=== PATIENT | male | born 1955 ===

== ENCOUNTER 2017-12-13 20:06 | Inpatient (IN) | payer MEDICARE, MEDICAID ==
[2017-12-13 20:06] VITALS: BMI 22.7
[2017-12-13] MEDS ORDERED: Sodium Chloride 0.9% 1,000 ML IV ONE (20:35)
--- NOTE | 2017-12-13 20:35 | C.PDOC ---
History Of Present Illness 62 year old male presents to the ED c/o abdominal pain associated with mild nausea for the past 5 days. Patient reports he goes to dialysis on Tuesday, , Tuesday he went to dialysis this morning. Patient states he noticed his belly was distended and was not able to eat. Patient denies fever, chills, diarrhea, back pain. Time Seen by Provider: 12/13/17 20:35 Chief Complaint (Nursing): Abdominal Pain History Per: Patient History/Exam Limitations: no limitations Onset/Duration Of Symptoms: Days Current Symptoms Are (Timing): Still Present Severity: Moderate Pain Scale Rating Of: 5 Location Of Pain/Discomfort: Diffuse Radiation Of Pain To:: None Quality Of Discomfort: "Pain" Associated Symptoms: Nausea Exacerbating Factors: None Alleviating Factors: None Last Bowel Movement: Today Recent travel outside of the [place]: No Additional History Per: Patient, Family Past Medical History Reviewed: Historical Data, Nursing Documentation, Vital Signs Vital Signs: Last Vital Signs Temp 98.1 F 12/13/17 20:13 Pulse 78 12/13/17 23:21 Resp 16 12/13/17 23:21 BP 149/76 12/13/17 23:21 Pulse Ox 100 12/13/17 23:21 - Medical History PMH: Anemia, Asthma, CHF, Depression, HTN, Hypercholesterolemia, Hyperlipidemia , Peripheral Edema, Pneumonia, End Stage Renal Disease, Chronic Kidney Disease Denies: Kidney Stones Surgical History: CABG, Cholecystectomy, Coronary Stent Denies: Pacemaker - [facility] CONTRAST ARTERIOGRAM-LEG (07/17/14) HEMODIALYSIS (09/06/14) INFLUENZA VACCINATION (07/17/14) INJECT/INFUSE NEC (04/18/12) MEASUREMENT OF CARDIAC TOTAL ACTIVITY, EXTERNAL APPROACH (10/03/16) NEBULIZER THERAPY (09/02/14) PERFORMANCE OF URINARY FILTRATION, MULTIPLE (10/03/16) PHYSICAL THERAPY NEC (09/06/14) Family History: States: Unknown Family Hx - Social History Hx Tobacco Use: No Hx Alcohol Use: No Hx Substance Use: No - Immunization History Hx Tetanus Toxoid Vaccination: No Hx Influenza Vaccination: Yes Hx Pneumococcal Vaccination: No Review Of Systems Constitutional: Negative for: Fever, Chills Cardiovascular: Positive for: Chest Pain (r rib pain) Respiratory: Negative for: Cough, Shortness of Breath Gastrointestinal: Positive for: Nausea, Abdominal Pain. Negative for: Vomiting , Diarrhea Genitourinary: Negative for: Dysuria Musculoskeletal: Negative for: Back Pain Skin: Negative for: Rash Neurological: Negative for: Headache Psych: Negative for: Anxiety Physical Exam - Physical Exam Appears: Non-toxic, No Acute Distress Skin: Warm, Dry Head: Normacephalic Eye(s): bilateral: Normal Inspection, Other (lens implants) Nose: No Discharge, No Deformity Oral Mucosa: Dry Lips: Normal Appearing Neck: Trachea Midline, Supple Chest: Symmetrical Cardiovascular: Rhythm Regular, No Murmur Respiratory: Decreased Breath Sounds, Rales (bases), No Rhonchi, No Wheezing Gastrointestinal/Abdominal: Soft, Tenderness (mild diffuse), Distention (very), No Guarding, No Rebound, Other (Very tympanic to percussion) Back: CVA Tenderness (r) Extremity: Normal ROM, Other (dialysis graft left arfm, good thrill and bruit) Extremity: Bilateral: Atraumatic Pulses: Left Dorsalis Pedis: Normal, Right Dorsalis Pedis: Normal Neurological/Psych: Oriented x3 Gait: Steady ED Course And Treatment - Laboratory Results Result Diagrams: 12/13/17 20:54 12/13/17 20:54 O2 Sat by Pulse Oximetry: 95 (On RA) Pulse Ox Interpretation: Normal Progress Note: Plan: - EKG. - VBG. - CT abd/pelvis. - Labs. - pepcid 20 mg IVP. - IV fluids. - Toradol 30 mg IVP. - UA Disposition Discussed With : Hannah Ramos Comment: accepted the pt on his service and took over the care at 12AM Doctor Will See Patient In The: Hospital Counseled Patient/Family Regarding: Studies Performed, Diagnosis - Disposition Disposition: HOSPITALIZED Disposition Time: 20:35 Condition: GUARDED Forms: [facility] (Greenlandic) - POA Present On Arrival: Poor Glycemic Control - Clinical Impression Clinical Impression: Abdominal pain, ESRD (end stage renal disease), Ascites, Pleural effusion, Fracture, rib - Scribe Statement The provider has reviewed the documentation as recorded by the Scribe Wilmar Trinidad All medical record entries made by the Scribe were at my direction and personally dictated by me. I have reviewed the chart and agree that the record accurately reflects my personal performance of the history, physical exam, medical decision making, and the department course for this patient. I have also personally directed, reviewed, and agree with the discharge instructions and disposition. Decision To Admit - Pt Status Changed To: Hospital Disposition Of: Inpatient - Admit Certification Admit to Inpatient:: After my assessment, the patient will require hospitalization for at least two midnights. This is because of the severity of symptoms shown, intensity of services needed, and/or the medical risk in this patient being treated as an outpatient. - InPatient: Physician Admission Certification:: After my assessment, the patient will require hospitalization for at least two midnights. This is because of the severity of symptoms shown, intensity of services needed, and/or the medical risk in this patient being treated as an outpatient. - . Bed Request Type: Regular Admitting Physician: Hannah Ramos Patient Diagnosis: Abdominal pain, ESRD (end stage renal disease), Ascites, Pleural effusion, Fracture, rib
[2017-12-13 20:59] LABS: BASO # 0.1 K/uL (0.0-0.2); BASO % 1.9 % (0.0-2.0); EOS # 0.1 K/uL (0.0-0.7); EOS % 1.2 % (0.0-4.0); HEMOGLOBIN 11.7 g/dL (12.0-18.0); LYMPH # 0.6 K/uL (1.0-4.3); LYMPH % 9.6 % (20.0-40.0); MEAN CELL VOLUME 83.6 fL (80.0-94.0); MEAN CORPUSCULAR HEMOGLOBIN 27.9 pg (27.0-31.0); MEAN CORPUSCULAR HGB CONC 33.3 g/dL (33.0-37.0); MEAN PLATELET VOLUME 10.1 fL (7.2-11.7); MONO # 0.6 K/uL (0.0-0.8); MONO % 10.2 % (0.0-10.0); NEUT # 4.7 K/uL (1.8-7.0); NEUT % 77.1 % (50.0-75.0); NRBC % 0.3 % (0.0-2.0); PLATELET COUNT 129 K/uL (130-400); RBC 4.21 Mil/uL (4.40-5.90); RED CELL DISTRIBUTION WIDTH 18.4 % (11.5-14.5); WHITE BLOOD COUNT 6.1 K/uL (4.8-10.8)
[2017-12-13 21:05] LABS: INR 2.4; PROTHROMBIN TIME 27.6 SECONDS (9.7-12.2)
[2017-12-13 21:06] LABS: VENOUS BLOOD GAS BASE EXCESS 8.4 mmol/L (0.0-2.0); VENOUS BLOOD GAS PCO2 55 mmHg (40-60); VENOUS BLOOD GAS PO2 17 mm/Hg (30-55); VENOUS BLOOD PH 7.41 (7.32-7.43)
[2017-12-13 21:10] LABS: ALB/GLOB RATIO 0.9 (1.0-2.1); CALCIUM 8.5 mg/dl (8.6-10.4)
[2017-12-13] MEDS ORDERED: Sodium Chloride 0.9% 1,000 ML ONE (21:19)
[2017-12-13 21:21] LABS: LYMPHOCYTE 15 % (20-40); MONOCYTE 9 % (0-10); NEUTROPHIL 76 % (50-75); TOTAL CELLS COUNTED 100
[2017-12-13 21:22] LABS: ANISOCYTOSIS SLIGHT; HYPOCHROMIC SLIGHT; PLATELET ESTIMATE SLIGHTLY DECREASED (NORMAL); POLYCHROMIC SLIGHT; TARGET CELLS SLIGHT
--- NOTE | 2017-12-13 23:41 | CT ---
EXAM: CT Abdomen and Pelvis Without Intravenous Contrast EXAM DATE/TIME: 12/13/2017 10:10 PM CLINICAL HISTORY: 62 years old, male; Pain and signs and symptoms; Bloating; Abdominal pain; Generalized; Additional info: Abd pain, severe distention TECHNIQUE: Axial computed tomography images of the abdomen and pelvis without intravenous contrast. All CT scans at this facility use one or more dose reduction techniques, viz.: automated exposure control; ma/kV adjustment per patient size (including targeted exams where dose is matched to indication; i.e. head); or iterative reconstruction technique. Coronal and sagittal reformatted images were created and reviewed. COMPARISON: No relevant prior studies available. FINDINGS: LIMITATIONS: Mild streak/motion artifact. LOWER THORAX: Bilateral pleural effusions, moderate to large on the right and moderate on the left. Small amount of consolidation in the right lung base, most likely representing compressive atelectasis related to the right pleural effusion. Heart appears moderately enlarged. Sternotomy wires and multiple mediastinal surgical clips noted, most likely from prior CABG. ABDOMEN: LIVER: Liver has a mildly cirrhotic appearance. It has a lobulated surface contour. No evidence of diffuse liver lesions. GALLBLADDER AND BILE DUCTS: Cholecystectomy clips. PANCREAS: No CT evidence of acute pancreatitis. SPLEEN: No acute abnormality of the spleen identified. ADRENALS: No acute abnormality of the adrenal glands identified. KIDNEYS AND URETERS: Kidneys appear mildly atrophic. Indeterminate 1.2 cm hyperdense lesion in the left kidney, image 69/series 601. This could represent a hyperdense cyst, but a solid lesion is not definitely excluded. Recommend further evaluation with renal protocol CT or MRI, on a nonemergent basis. Bilateral perinephric stranding, a nonspecific finding. No evidence of hydroureteronephrosis. STOMACH AND BOWEL: Colonic diverticulosis, with no evidence of acute diverticulitis. Otherwise, no significant abnormality of the bowel is identified. No evidence of bowel obstruction. APPENDIX: Normal appendix is not seen, however, there are no significant inflammatory changes visualized in the expected location of the appendix to suggest appendicitis. Recommend clinical correlation. PELVIS: BLADDER: Mild thickening of the bladder wall. REPRODUCTIVE: No acute abnormality of the reproductive organs is seen. ABDOMEN and PELVIS: INTRAPERITONEAL SPACE: Moderate to large amount of abdominal and pelvic free fluid. No evidence of free air. BONES/JOINTS: Fracture of the right seventh rib postero-laterally, image 14/series 3, which appears recent/acute in nature. Multiple, bilateral healing and/or healed rib fractures are also seen. Bilateral pars defects at L5. No additional acute fractures. SOFT TISSUES: Diffuse subcutaneous edema/anasarca. VASCULATURE: Extensive atherosclerotic calcification. No evidence of abdominal aortic aneurysm. LYMPH NODES: No evidence of diffuse lymphadenopathy. IMPRESSION: - Moderate to large amount of abdominal and pelvic free fluid. - Moderate to large bilateral pleural effusions, larger on the right. - Diffuse subcutaneous edema/anasarca. - Fracture of the right seventh rib, which appears acute/recent in nature. - Mild bladder wall thickening. This is a nonspecific finding, but can be seen with cystitis. - Incidental indeterminate hyperdense renal lesion. See above.- Purple - See above for remaining findings.
[2017-12-14] MEDS ORDERED: Albuterol-Ipratrop 3 mg / 0.5 (3 ml) UD IH SCH ×2 (06:00→08:00)
[2017-12-14] MEDS: (Novolin R) Insulin Human Regular 100 units/ml vial SC SCH ×4 (08:30→22:08)
--- NOTE | 2017-12-14 10:16 | CP.PCM.CON ---
<Mireya Gonzalez - Last Filed: 12/14/17 10:59> History of Present Illness - History of Present Illness History of Present Illness: Gastroenterology Consult Note Mr. Torres is a 62 year old Male with PMHx as listed below (hard of hearing, has hearing aids) presents with nausea, abdominal pain, and increased abdominal girth x 5 days. Patient reported his abdomen started increasing in size over the span of a week; resulting in nausea and shortness of breath. He continued with his scheduled dialysis days, with no relief of his symptoms. This is his first occurrence of ascites, no prior paracentesis performed. As per patient, he was not aware of any history of liver disease. CT shows cirrhotic appearance with no liver lesions. No prior EGD or Colonoscopy. 12 Point ROS unremarkable, unless noted as above. PMHx: ESRD (TTS), Sarcoidosis, HTN, DM, HLD, CAD with multiple stents, CABG, CHF , PVD, Osteoporosis, Osteoarthritis, Cirrhosis noted on CT Scan PSHx: CAD with PCI, CABG, cholecystectomy, left arm fistula Meds: As per MAR All: NKDA SHx: Denied any tobacco, ETOH or illicit drug use FHx: Unremarkable for any GI issues or malignancies Past Patient History - Infectious Disease Hx of Infectious Diseases: None - Tetanus Immunizations Tetanus Immunization: Unknown - Past Medical History & Family History Past Medical History?: Yes - Past Social History Smoking Status: Unknown If Ever Smoked - CARDIAC Hx Cardiac Disorders: Yes Hx Congestive Heart Failure: Yes Hx Hypercholesterolemia: Yes Hx Hypertension: Yes Hx Pacemaker: No Hx Peripheral Edema: Yes - PULMONARY Hx Respiratory Disorders: Yes Hx Asthma: Yes Hx Pneumonia: Yes - NEUROLOGICAL Hx Neurological Disorder: No Hx Paralysis: No - HEENT Hx HEENT Problems: Yes Hx Cataracts: Yes Hx Deafness: Yes Hx Glaucoma: Yes - RENAL Hx Chronic Kidney Disease: Yes Type of Dialysis Access: left arm av shunt Date of Last Dialysis Treatment: 12/13/17 Hx Kidney Stones: No - ENDOCRINE/METABOLIC Hx Endocrine Disorders: Yes Hx Diabetes Mellitus Type 2: Yes - HEMATOLOGICAL/ONCOLOGICAL Hx Blood Disorders: Yes Hx Anemia: Yes - INTEGUMENTARY Hx Dermatological Problems: No - MUSCULOSKELETAL/RHEUMATOLOGICAL Hx Musculoskeletal Disorders: No Hx Falls: No - GASTROINTESTINAL Hx Gastrointestinal Disorders: Yes Hx Constipation: Yes - GENITOURINARY/GYNECOLOGICAL Hx Genitourinary Disorders: No Hx Reproductive Disorders: No - PSYCHIATRIC Hx Psychophysiologic Disorder: Yes Hx Depression: Yes Hx Substance Use: No - SURGICAL HISTORY Hx Surgeries: Yes Hx Cholecystectomy: Yes Hx Coronary Artery Bypass Graft: Yes Hx Coronary Stent: Yes - ANESTHESIA Hx Anesthesia: Yes Hx Anesthesia Reactions: No Hx Malignant Hyperthermia: No Has any member of the family had a problem w/ anesthesia?: No Meds Allergies/Adverse Reactions: Allergies Allergy/AdvReac Type Severity Reaction Status Date / Time No Known Allergies Allergy Verified 12/14/17 00:48 - Medications Medications: Current Medications Albuterol/Ipratropium (Duoneb 3 Mg/0.5 Mg (3 Ml) Ud) 3 ml IH RQ6 KEVIN Cilostazol (Pletal) 50 mg PO BID KEVIN Furosemide (Lasix) 80 mg PO DAILY KEVIN Gabapentin (Neurontin) 300 mg PO DAILY KEVIN Insulin Human Regular (Novolin R) 0 unit SC ACHS KEVIN PRN Reason: Protocol Last Admin: 12/14/17 08:30 Dose: Not Given Isosorbide Mononitrate (Imdur) 120 mg PO DAILY [facility] Metoprolol Tartrate (Lopressor) 50 mg PO BID KEVIN Mupirocin (Bactroban Ointment) 0 gm TOP BID KEVIN Prednisone (Prednisone Tab) 5 mg PO DAILY KEVIN Rosuvastatin Calcium (Crestor) 5 mg PO HS [facility] Physical Exam - Constitutional Appears: No Acute Distress - Head Exam Head Exam: NORMAL INSPECTION, NORMOCEPHALIC - Eye Exam Eye Exam: EOMI, Normal appearance, PERRL. absent: Scleral icterus Pupil Exam: NORMAL ACCOMODATION - ENT Exam ENT Exam: Mucous Membranes Moist, Normal Exam - Respiratory Exam Respiratory Exam: Decreased Breath Sounds, NORMAL BREATHING PATTERN - Cardiovascular Exam Cardiovascular Exam: REGULAR RHYTHM Additional comments: midline scar 2/2 CABG - GI/Abdominal Exam GI & Abdominal Exam: Distended, Normal Bowel Sounds, Soft, Tenderness. absent: Firm, Organomegaly Additional comments: + fluid wave shift, tympanic to percussion - Extremities Exam Extremities exam: Positive for: normal inspection, pedal pulses present. Negative for: pedal edema, tenderness Additional comments: left AVF - Back Exam Back exam: NORMAL INSPECTION - Neurological Exam Neurological exam: Alert, CN II-XII Intact, Oriented x3 - Psychiatric Exam Psychiatric exam: Normal Affect, Normal Mood - Skin Skin Exam: Dry, Intact, Normal Color, Warm Results - Vital Signs Recent Vital Signs: Last Vital Signs Temp 97.7 F 12/14/17 07:53 Pulse 76 12/14/17 07:53 Resp 20 12/14/17 07:53 BP 150/85 12/14/17 07:53 Pulse Ox 98 12/14/17 07:53 - Labs Result Diagrams: 12/13/17 20:54 12/13/17 20:54 Labs: Laboratory Results - last 24 hr 12/13/17 12/13/17 12/13/17 20:54 20:54 20:54 WBC 6.1 RBC 4.21 L Hgb 11.7 L Hct 35.2 MCV 83.6 MCH 27.9 MCHC 33.3 RDW 18.4 H Plt Count 129 L D MPV 10.1 Neut % (Auto) 77.1 H Lymph % (Auto) 9.6 L [place] % (Auto) 10.2 H Eos % (Auto) 1.2 Baso % (Auto) 1.9 Neut # (Auto) 4.7 Lymph # (Auto) 0.6 L [place] # (Auto) 0.6 Eos # (Auto) 0.1 Baso # (Auto) 0.1 Neutrophils % (Manual) 76 H Lymphocytes % (Manual) 15 L Monocytes % (Manual) 9 Platelet Estimate Slightly decreased L Polychromasia Slight Hypochromasia (manual) Slight Anisocytosis (manual) Slight Target Cells Slight PT 27.6 H INR 2.4 APTT 32 pO2 VBG pH VBG pCO2 VBG HCO3 VBG Total CO2 VBG O2 Sat (Calc) VBG Base Excess VBG Potassium Glucose Lactate Sodium 136 Potassium 5.5 H Chloride 90 L Carbon Dioxide 30 Anion Gap 23 H BUN 22 H Creatinine 3.9 H Est GFR ( Amer) 19 Est GFR (Non-Af Amer) 16 POC Glucose (mg/dL) Random Glucose 170 H Calcium 8.5 L Total Bilirubin 1.0 AST 75 H D ALT 72 D Alkaline Phosphatase 225 H Total Protein 8.4 H Albumin 4.0 Globulin 4.4 H Albumin/Globulin Ratio 0.9 L Lipase 68 Venous Blood Potassium 12/13/17 12/14/17 21:00 07:16 WBC RBC Hgb Hct MCV MCH MCHC RDW Plt Count MPV Neut % (Auto) Lymph % (Auto) [place] % (Auto) Eos % (Auto) Baso % (Auto) Neut # (Auto) Lymph # (Auto) [place] # (Auto) Eos # (Auto) Baso # (Auto) Neutrophils % (Manual) Lymphocytes % (Manual) Monocytes % (Manual) Platelet Estimate Polychromasia Hypochromasia (manual) Anisocytosis (manual) Target Cells PT INR APTT pO2 17 L VBG pH 7.41 VBG pCO2 55 VBG HCO3 29.5 VBG Total CO2 36.6 H VBG O2 Sat (Calc) 29.8 L VBG Base Excess 8.4 H VBG Potassium 4.5 Glucose 157 H Lactate 1.9 Sodium 134.0 Potassium Chloride 95.0 L Carbon Dioxide Anion Gap BUN Creatinine Est GFR ( Amer) Est GFR (Non-Af Amer) POC Glucose (mg/dL) 88 Random Glucose Calcium Total Bilirubin AST ALT Alkaline Phosphatase Total Protein Albumin Globulin Albumin/Globulin Ratio Lipase Venous Blood Potassium 4.5 Assessment & Plan - Assessment and Plan (Free Text) Assessment: Mr. Torres is a 62 year old Male with PMHx of ESRD (TTS), Sarcoidosis, HTN, DM, HLD, CAD with multiple stents, CABG, CHF, PVD, Osteoporosis, Osteoarthritis, Cirrhosis noted on CT Scan (hard of hearing, has hearing aids) presents with nausea, abdominal pain, and increased abdominal girth x 5 days with new onset ascites. Ascites Cirrhosis noted on CT Scan ESRD (TTS) Sarcoidosis Plan: - Low sodium diet as tolerated - IR guided, diagnostic parecentesis, will send fluid for cytology - If peritoneal fluid > 5L removed, replete with IV albumin 6-8g/ extra L removed - Abdominal US performed 12/11/17 at [place] - negative for portal or splenic vein thrombosis - Obtain AFP - Obtain viral hepatitis and autoimmune serologies - Will continue to monitor patient's clinical course DW Mireya Fay DO, PGY-1 <Stepan Linares - Last Filed: 12/14/17 12:05> Meds - Medications Medications: Current Medications Albuterol/Ipratropium (Duoneb 3 Mg/0.5 Mg (3 Ml) Ud) 3 ml IH RQ6 [facility] Cilostazol (Pletal) 50 mg PO BID [facility] Last Admin: 12/14/17 10:36 Dose: 50 mg Furosemide (Lasix) 80 mg PO DAILY [facility] Last Admin: 12/14/17 10:32 Dose: 80 mg Gabapentin (Neurontin) 300 mg PO DAILY [facility] Last Admin: 12/14/17 10:35 Dose: 300 mg Insulin Human Regular (Novolin R) 0 unit SC [facility] PRN Reason: Protocol Last Admin: 12/14/17 08:30 Dose: Not Given Isosorbide Mononitrate (Imdur) 120 mg PO DAILY [facility] Metoprolol Tartrate (Lopressor) 50 mg PO BID [facility] Last Admin: 12/14/17 10:35 Dose: 50 mg Mupirocin (Bactroban Ointment) 0 gm TOP BID [facility] Last Admin: 12/14/17 10:42 Dose: Not Given Prednisone (Prednisone Tab) 5 mg PO DAILY [facility] Last Admin: 12/14/17 10:36 Dose: 5 mg Rosuvastatin Calcium (Crestor) 5 mg PO [facility] Results - Vital Signs Recent Vital Signs: Last Vital Signs Temp 97.7 F 12/14/17 07:53 Pulse 76 12/14/17 07:53 Resp 20 12/14/17 07:53 BP 150/85 12/14/17 10:32 Pulse Ox 98 12/14/17 07:53 - Labs Result Diagrams: 12/13/17 20:54 12/13/17 20:54 Labs: Laboratory Results - last 24 hr 12/13/17 12/13/17 12/13/17 20:54 20:54 20:54 WBC 6.1 RBC 4.21 L Hgb 11.7 L Hct 35.2 MCV 83.6 MCH 27.9 MCHC 33.3 RDW 18.4 H Plt Count 129 L D MPV 10.1 Neut % (Auto) 77.1 H Lymph % (Auto) 9.6 L [place] % (Auto) 10.2 H Eos % (Auto) 1.2 Baso % (Auto) 1.9 Neut # (Auto) 4.7 Lymph # (Auto) 0.6 L [place] # (Auto) 0.6 Eos # (Auto) 0.1 Baso # (Auto) 0.1 Neutrophils % (Manual) 76 H Lymphocytes % (Manual) 15 L Monocytes % (Manual) 9 Platelet Estimate Slightly decreased L Polychromasia Slight Hypochromasia (manual) Slight Anisocytosis (manual) Slight Target Cells Slight PT 27.6 H INR 2.4 APTT 32 pO2 VBG pH VBG pCO2 VBG HCO3 VBG Total CO2 VBG O2 Sat (Calc) VBG Base Excess VBG Potassium Glucose Lactate Sodium 136 Potassium 5.5 H Chloride 90 L Carbon Dioxide 30 Anion Gap 23 H BUN 22 H Creatinine 3.9 H Est GFR ( Amer) 19 Est GFR (Non-Af Amer) 16 POC Glucose (mg/dL) Random Glucose 170 H Calcium 8.5 L Total Bilirubin 1.0 AST 75 H D ALT 72 D Alkaline Phosphatase 225 H Total Protein 8.4 H Albumin 4.0 Globulin 4.4 H Albumin/Globulin Ratio 0.9 L Lipase 68 Alpha Fetoprotein Venous Blood Potassium IgG Hepatitis A IgM Ab Hep Bs Antigen Hep B Core IgM Ab 12/13/17 12/14/17 12/14/17 21:00 07:16 10:50 WBC RBC Hgb Hct MCV MCH MCHC RDW Plt Count MPV Neut % (Auto) Lymph % (Auto) [place] % (Auto) Eos % (Auto) Baso % (Auto) Neut # (Auto) Lymph # (Auto) [place] # (Auto) Eos # (Auto) Baso # (Auto) Neutrophils % (Manual) Lymphocytes % (Manual) Monocytes % (Manual) Platelet Estimate Polychromasia Hypochromasia (manual) Anisocytosis (manual) Target Cells PT INR APTT pO2 17 L VBG pH 7.41 VBG pCO2 55 VBG HCO3 29.5 VBG Total CO2 36.6 H VBG O2 Sat (Calc) 29.8 L VBG Base Excess 8.4 H VBG Potassium 4.5 Glucose 157 H Lactate 1.9 Sodium 134.0 Potassium Chloride 95.0 L Carbon Dioxide Anion Gap BUN Creatinine Est GFR ( Amer) Est GFR (Non-Af Amer) POC Glucose (mg/dL) 88 Random Glucose Calcium Total Bilirubin AST ALT Alkaline Phosphatase Total Protein Albumin Globulin Albumin/Globulin Ratio Lipase 87 Alpha Fetoprotein Venous Blood Potassium 4.5 IgG Hepatitis A IgM Ab Hep Bs Antigen Hep B Core IgM Ab 12/14/17 12/14/17 12/14/17 10:50 10:50 10:50 WBC RBC Hgb Hct MCV MCH MCHC RDW Plt Count MPV Neut % (Auto) Lymph % (Auto) [place] % (Auto) Eos % (Auto) Baso % (Auto) Neut # (Auto) Lymph # (Auto) [place] # (Auto) Eos # (Auto) Baso # (Auto) Neutrophils % (Manual) Lymphocytes % (Manual) Monocytes % (Manual) Platelet Estimate Polychromasia Hypochromasia (manual) Anisocytosis (manual) Target Cells PT INR APTT pO2 VBG pH VBG pCO2 VBG HCO3 VBG Total CO2 VBG O2 Sat (Calc) VBG Base Excess VBG Potassium Glucose Lactate Sodium Potassium Chloride Carbon Dioxide Anion Gap BUN Creatinine Est GFR ( Amer) Est GFR (Non-Af Amer) POC Glucose (mg/dL) Random Glucose Calcium Total Bilirubin AST ALT Alkaline Phosphatase Total Protein Albumin Globulin Albumin/Globulin Ratio Lipase Alpha Fetoprotein 5.4 Venous Blood Potassium IgG 2151.0 H Hepatitis A IgM Ab Negative Hep Bs Antigen Negative Hep B Core IgM Ab Negative 12/14/17 11:12 WBC RBC Hgb Hct MCV MCH MCHC RDW Plt Count MPV Neut % (Auto) Lymph % (Auto) [place] % (Auto) Eos % (Auto) Baso % (Auto) Neut # (Auto) Lymph # (Auto) [place] # (Auto) Eos # (Auto) Baso # (Auto) Neutrophils % (Manual) Lymphocytes % (Manual) Monocytes % (Manual) Platelet Estimate Polychromasia Hypochromasia (manual) Anisocytosis (manual) Target Cells PT INR APTT pO2 VBG pH VBG pCO2 VBG HCO3 VBG Total CO2 VBG O2 Sat (Calc) VBG Base Excess VBG Potassium Glucose Lactate Sodium Potassium Chloride Carbon Dioxide Anion Gap BUN Creatinine Est GFR ( Amer) Est GFR (Non-Af Amer) POC Glucose (mg/dL) 162 H Random Glucose Calcium Total Bilirubin AST ALT Alkaline Phosphatase Total Protein Albumin Globulin Albumin/Globulin Ratio Lipase Alpha Fetoprotein Venous Blood Potassium IgG Hepatitis A IgM Ab Hep Bs Antigen Hep B Core IgM Ab Attending/Attestation - Attestation I have personally seen and examined this patient.: Yes I have fully participated in the care of the patient.: Yes I have reviewed all pertinent clinical information: Yes Notes (Text): 12/14/17 12:02 62 year old male with h/o ESRD on HD, CAD s/p CABG, admitted with abdominal pain and distention found to have ascites and evidence of cirrhosis on imaging, as well as asterixis on exam. Recommend large volume paracentesis to eval further. Send fluid for cell count, diff, cytology, albumin, protein, and culture. Recommend eval for chronic liver disease including autoimmune disease. Prior hepatitis serogogies negative. No h/o etoh abuse. Mild asterixis on exam may indicated mild hepatic encephalopathy. Start lactulose.
[2017-12-14] MEDS: Cilostazol 50 mg Tab UD PO SCH ×2 (10:36→18:00)
[2017-12-14 11:48] LABS: HEPATITIS B SURFACE AG Negative (NEGATIVE)
[2017-12-14 11:54] LABS: HEPATITIS A IGM NEGATIVE (NEGATIVE); HEPATITIS B CORE AB NEGATIVE (NEGATIVE)
[2017-12-14 12:06] LABS: HEPATITIS C ANTIBODY NEGATIVE (NEGATIVE)
--- NOTE | 2017-12-14 13:34 | CP.PCM.CON ---
History of Present Illness - History of Present Illness History of Present Illness: Mr. Torres is a 62 year old Male with PMHx as listed below (hard of hearing, has hearing aids) presents with nausea, abdominal pain, and increased abdominal girth x 5 days. Patient reported his abdomen started increasing in size over the span of a week; resulting in nausea and shortness of breath. He continued with his scheduled dialysis days, with no relief of his symptoms. This is his first occurrence of ascites, no prior paracentesis performed. As per patient, he was not aware of any history of liver disease. CT shows cirrhotic appearance with no liver lesions. No prior EGD or Colonoscopy. 12 Point ROS unremarkable, unless noted as above. PMHx: ESRD (TTS), Sarcoidosis, HTN, DM, HLD, CAD with multiple stents, CABG, CHF , PVD, Osteoporosis, Osteoarthritis, Cirrhosis noted on CT Scan PSHx: CAD with PCI, CABG, cholecystectomy, left arm fistula Meds: As per DEC All: NKDA SHx: Denied any tobacco, ETOH or illicit drug use FHx: Unremarkable for any GI issues or malignancies ; no known CKD Last dialysis 12/13- has been tolerating dialysis well Review of Systems - Constitutional Constitutional: Fatigue, Weakness - EENT Eyes: absent: As Per HPI, Blind Spots, Blurred Vision, Change in Vision, Decreased Night Vision, Diplopia, Discharge, Dry Eye, Exophthalmos, Floaters, Irritation, Itchy Eyes, Loss of Peripheral Vision, Pain, Photophobia, Requires Corrective Lenses, Sees Flashes, Spots in Vision, Tunnel Vision, Other Visual Disturbances, Loss of Vision, Other Ears: absent: As Per HPI, Decreased Hearing, Ear Discharge, Ear Pain, Tinnitus, Abnormal Hearing, Disequilibrium, Dizziness, Other Nose/Mouth/Throat: absent: As Per HPI, Epistaxis, Nasal Congestion, Nasal Discharge, Nasal Obstruction, Nasal Trauma, Nose Pain, Post Nasal Drip, Sinus Pain, Sinus Pressure, Bleeding Gums, Change in Voice, Dental Pain, Dry Mouth, Dysphagia, Halitosis, Hoarsness, Lip Swelling, Mouth Lesions, Mouth Pain, Odynophagia, Sore Throat, Throat Swelling, Tongue Swelling, Facial Pain, Neck Pain, Neck Mass, Other - Cardiovascular Cardiovascular: Dyspnea on Exertion, Edema - Respiratory Respiratory: Cough, Dyspnea on Exertion - Gastrointestinal Gastrointestinal: As Per HPI - Genitourinary Genitourinary: As Per HPI - Musculoskeletal Musculoskeletal: Muscle Cramps, Myalgias - Neurological Neurological: absent: As Per HPI, Abnormal Gait, Abnormal Hearing, Abnormal Movements, Abnormal Speech, Behavioral Changes, Burning Sensations, Confusion, Convulsions, Disequilibrium, Dizziness, Numbness, Focal Weakness, Frequent Falls , Headaches, Lack of Coordination, Loss of Vision, Memory Loss, Paresthesias, Radicular Pain, Restless Legs, Sensory Deficit, Syncope, Tingling, Tremor, Vertigo, Weakness, Other Visual Disturbances, Other Past Patient History - Infectious Disease Hx of Infectious Diseases: None - Tetanus Immunizations Tetanus Immunization: Unknown - Past Medical History & Family History Past Medical History?: Yes Past Family History: Reviewed and not pertinent - Past Social History Smoking Status: Unknown If Ever Smoked Chewing Tobacco Use: No Cigar Use: No Alcohol: None Drugs: Denies Home Situation {Lives}: With Family - CARDIAC Hx Cardiac Disorders: Yes Hx Congestive Heart Failure: Yes Hx Hypercholesterolemia: Yes Hx Hypertension: Yes Hx Pacemaker: No Hx Peripheral Edema: Yes - PULMONARY Hx Respiratory Disorders: Yes Hx Asthma: Yes Hx Pneumonia: Yes - NEUROLOGICAL Hx Neurological Disorder: No Hx Paralysis: No - HEENT Hx HEENT Problems: Yes Hx Cataracts: Yes Hx Deafness: Yes Hx Glaucoma: Yes - RENAL Hx Chronic Kidney Disease: Yes Type of Dialysis Access: left arm av shunt Date of Last Dialysis Treatment: 12/13/17 Hx Kidney Stones: No - ENDOCRINE/METABOLIC Hx Endocrine Disorders: Yes Hx Diabetes Mellitus Type 2: Yes - HEMATOLOGICAL/ONCOLOGICAL Hx Blood Disorders: Yes Hx Anemia: Yes - INTEGUMENTARY Hx Dermatological Problems: No - MUSCULOSKELETAL/RHEUMATOLOGICAL Hx Musculoskeletal Disorders: No Hx Falls: No - GASTROINTESTINAL Hx Gastrointestinal Disorders: Yes Hx Constipation: Yes - GENITOURINARY/GYNECOLOGICAL Hx Genitourinary Disorders: No Hx Reproductive Disorders: No - PSYCHIATRIC Hx Psychophysiologic Disorder: Yes Hx Depression: Yes Hx Substance Use: No - SURGICAL HISTORY Hx Surgeries: Yes Hx Cholecystectomy: Yes Hx Coronary Artery Bypass Graft: Yes Hx Coronary Stent: Yes - ANESTHESIA Hx Anesthesia: Yes Hx Anesthesia Reactions: No Hx Malignant Hyperthermia: No Has any member of the family had a problem w/ anesthesia?: No Meds Allergies/Adverse Reactions: Allergies Allergy/AdvReac Type Severity Reaction Status Date / Time No Known Allergies Allergy Verified 12/14/17 00:48 - Medications Medications: Current Medications Albuterol/Ipratropium (Duoneb 3 Mg/0.5 Mg (3 Ml) Ud) 3 ml IH RQ6 [facility] Cilostazol (Pletal) 50 mg PO BID [facility] Last Admin: 12/14/17 10:36 Dose: 50 mg Furosemide (Lasix) 80 mg PO DAILY [facility] Last Admin: 12/14/17 10:32 Dose: 80 mg Gabapentin (Neurontin) 300 mg PO DAILY [facility] Last Admin: 12/14/17 10:35 Dose: 300 mg Insulin Human Regular (Novolin R) 0 unit SC [facility] PRN Reason: Protocol Last Admin: 12/14/17 12:19 Dose: 1 unit Isosorbide Mononitrate (Imdur) 120 mg PO DAILY [facility] Lactulose (Enulose) 20 gm PO DAILY [facility] Last Admin: 12/14/17 12:18 Dose: 20 gm Metoprolol Tartrate (Lopressor) 50 mg PO BID [facility] Last Admin: 12/14/17 10:35 Dose: 50 mg Mupirocin (Bactroban Ointment) 0 gm TOP BID [facility] Last Admin: 12/14/17 10:42 Dose: Not Given Prednisone (Prednisone Tab) 5 mg PO DAILY [facility] Last Admin: 12/14/17 10:36 Dose: 5 mg Rosuvastatin Calcium (Crestor) 5 mg PO [facility] Physical Exam - Constitutional Appears: No Acute Distress, Chronically Ill - Head Exam Head Exam: ATRAUMATIC, NORMAL INSPECTION - Eye Exam Eye Exam: EOMI, Normal appearance - Neck Exam Neck exam: Positive for: Normal Inspection. Negative for: Tenderness - Respiratory Exam Respiratory Exam: Clear to Auscultation Bilateral, NORMAL BREATHING PATTERN - Cardiovascular Exam Cardiovascular Exam: REGULAR RHYTHM, +S1 - GI/Abdominal Exam GI & Abdominal Exam: Distended, Soft - Extremities Exam Extremities exam: Positive for: pedal edema. Negative for: tenderness - Neurological Exam Neurological exam: CN II-XII Intact, Oriented x3 - Skin Skin Exam: Dry, Warm Results - Vital Signs Recent Vital Signs: Last Vital Signs Temp 97.7 F 12/14/17 07:53 Pulse 76 12/14/17 07:53 Resp 20 12/14/17 07:53 BP 150/85 12/14/17 10:32 Pulse Ox 98 12/14/17 07:53 - Labs Result Diagrams: 12/13/17 20:54 12/13/17 20:54 Labs: Laboratory Results - last 24 hr 12/13/17 12/13/17 12/13/17 20:54 20:54 20:54 WBC 6.1 RBC 4.21 L Hgb 11.7 L Hct 35.2 MCV 83.6 MCH 27.9 MCHC 33.3 RDW 18.4 H Plt Count 129 L D MPV 10.1 Neut % (Auto) 77.1 H Lymph % (Auto) 9.6 L [place] % (Auto) 10.2 H Eos % (Auto) 1.2 Baso % (Auto) 1.9 Neut # (Auto) 4.7 Lymph # (Auto) 0.6 L [place] # (Auto) 0.6 Eos # (Auto) 0.1 Baso # (Auto) 0.1 Neutrophils % (Manual) 76 H Lymphocytes % (Manual) 15 L Monocytes % (Manual) 9 Platelet Estimate Slightly decreased L Polychromasia Slight Hypochromasia (manual) Slight Anisocytosis (manual) Slight Target Cells Slight PT 27.6 H INR 2.4 APTT 32 pO2 VBG pH VBG pCO2 VBG HCO3 VBG Total CO2 VBG O2 Sat (Calc) VBG Base Excess VBG Potassium Glucose Lactate Sodium 136 Potassium 5.5 H Chloride 90 L Carbon Dioxide 30 Anion Gap 23 H BUN 22 H Creatinine 3.9 H Est GFR ( Amer) 19 Est GFR (Non-Af Amer) 16 POC Glucose (mg/dL) Random Glucose 170 H Calcium 8.5 L Total Bilirubin 1.0 AST 75 H D ALT 72 D Alkaline Phosphatase 225 H Total Protein 8.4 H Albumin 4.0 Globulin 4.4 H Albumin/Globulin Ratio 0.9 L Lipase 68 Alpha Fetoprotein Venous Blood Potassium IgG Hepatitis A IgM Ab Hep Bs Antigen Hep B Core IgM Ab Hepatitis C Antibody 12/13/17 12/14/17 12/14/17 21:00 07:16 10:50 WBC RBC Hgb Hct MCV MCH MCHC RDW Plt Count MPV Neut % (Auto) Lymph % (Auto) [place] % (Auto) Eos % (Auto) Baso % (Auto) Neut # (Auto) Lymph # (Auto) [place] # (Auto) Eos # (Auto) Baso # (Auto) Neutrophils % (Manual) Lymphocytes % (Manual) Monocytes % (Manual) Platelet Estimate Polychromasia Hypochromasia (manual) Anisocytosis (manual) Target Cells PT INR APTT pO2 17 L VBG pH 7.41 VBG pCO2 55 VBG HCO3 29.5 VBG Total CO2 36.6 H VBG O2 Sat (Calc) 29.8 L VBG Base Excess 8.4 H VBG Potassium 4.5 Glucose 157 H Lactate 1.9 Sodium 134.0 Potassium Chloride 95.0 L Carbon Dioxide Anion Gap BUN Creatinine Est GFR ( Amer) Est GFR (Non-Af Amer) POC Glucose (mg/dL) 88 Random Glucose Calcium Total Bilirubin AST ALT Alkaline Phosphatase Total Protein Albumin Globulin Albumin/Globulin Ratio Lipase 87 Alpha Fetoprotein Venous Blood Potassium 4.5 IgG Hepatitis A IgM Ab Hep Bs Antigen Hep B Core IgM Ab Hepatitis C Antibody 12/14/17 12/14/17 12/14/17 10:50 10:50 10:50 WBC RBC Hgb Hct MCV MCH MCHC RDW Plt Count MPV Neut % (Auto) Lymph % (Auto) [place] % (Auto) Eos % (Auto) Baso % (Auto) Neut # (Auto) Lymph # (Auto) [place] # (Auto) Eos # (Auto) Baso # (Auto) Neutrophils % (Manual) Lymphocytes % (Manual) Monocytes % (Manual) Platelet Estimate Polychromasia Hypochromasia (manual) Anisocytosis (manual) Target Cells PT INR APTT pO2 VBG pH VBG pCO2 VBG HCO3 VBG Total CO2 VBG O2 Sat (Calc) VBG Base Excess VBG Potassium Glucose Lactate Sodium Potassium Chloride Carbon Dioxide Anion Gap BUN Creatinine Est GFR ( Amer) Est GFR (Non-Af Amer) POC Glucose (mg/dL) Random Glucose Calcium Total Bilirubin AST ALT Alkaline Phosphatase Total Protein Albumin Globulin Albumin/Globulin Ratio Lipase Alpha Fetoprotein 5.4 Venous Blood Potassium IgG 2151.0 H Hepatitis A IgM Ab Negative Hep Bs Antigen Negative Hep B Core IgM Ab Negative Hepatitis C Antibody Negative 12/14/17 11:12 WBC RBC Hgb Hct MCV MCH MCHC RDW Plt Count MPV Neut % (Auto) Lymph % (Auto) [place] % (Auto) Eos % (Auto) Baso % (Auto) Neut # (Auto) Lymph # (Auto) [place] # (Auto) Eos # (Auto) Baso # (Auto) Neutrophils % (Manual) Lymphocytes % (Manual) Monocytes % (Manual) Platelet Estimate Polychromasia Hypochromasia (manual) Anisocytosis (manual) Target Cells PT INR APTT pO2 VBG pH VBG pCO2 VBG HCO3 VBG Total CO2 VBG O2 Sat (Calc) VBG Base Excess VBG Potassium Glucose Lactate Sodium Potassium Chloride Carbon Dioxide Anion Gap BUN Creatinine Est GFR ( Amer) Est GFR (Non-Af Amer) POC Glucose (mg/dL) 162 H Random Glucose Calcium Total Bilirubin AST ALT Alkaline Phosphatase Total Protein Albumin Globulin Albumin/Globulin Ratio Lipase Alpha Fetoprotein Venous Blood Potassium IgG Hepatitis A IgM Ab Hep Bs Antigen Hep B Core IgM Ab Hepatitis C Antibody Assessment & Plan (1) Type 2 diabetes mellitus with diabetic nephropathy Status: Acute (2) Hypertension associated with chronic kidney disease due to type 2 diabetes mellitus Status: Acute (3) Cirrhosis of liver not due to alcohol Status: Acute (4) CAD (coronary artery disease) Status: Chronic Priority: Medium - Assessment and Plan (Free Text) Plan: GI workup dialysis TTS
[2017-12-14] MEDS: Albuterol-Ipratrop 3 mg / 0.5 (3 ml) UD IH SCH (13:55)
[2017-12-14 14:43] LABS: BASO % 0.5 % (0.0-2.0); EOS # 0.1 K/uL (0.0-0.7); EOS % 1.4 % (0.0-4.0); HEMOGLOBIN 11.3 g/dL (12.0-18.0); LYMPH # 0.3 K/uL (1.0-4.3); MEAN CELL VOLUME 82.9 fL (80.0-94.0); MEAN CORPUSCULAR HGB CONC 33.7 g/dL (33.0-37.0); MEAN PLATELET VOLUME 10.3 fL (7.2-11.7); MONO # 0.4 K/uL (0.0-0.8); MONO % 7.7 % (0.0-10.0); NEUT # 4.6 K/uL (1.8-7.0); NEUT % 84.4 % (50.0-75.0); NRBC % 0.5 % (0.0-2.0); PLATELET COUNT 111 K/uL (130-400); RBC 4.03 Mil/uL (4.40-5.90); RED CELL DISTRIBUTION WIDTH 17.6 % (11.5-14.5); WHITE BLOOD COUNT 5.4 K/uL (4.8-10.8)
[2017-12-14 14:47] LABS: SQUAMOUS EPITHIAL 1 /hpf (0-5); URINE AMORPHOUS SEDIMENT RARE /ul (<OCC); URINE BILIRUBIN NEGATIVE (NEGATIVE); URINE BLOOD 1+ (NEGATIVE); URINE CLARITY Hazy (Clear); URINE COLOR Amber (YELLOW); URINE GLUCOSE (UA) NORMAL (Normal); URINE HYALINE CAST 0-2 /lpf (0-2); URINE LEUKOCYTE ESTERASE 2+ Leu/uL (Negative); URINE PROTEIN 3+ mg/dL (NEGATIVE)
[2017-12-14 14:56] LABS: URINE BACTERIA FEW (<OCC)
[2017-12-14 15:05] LABS: ALBUMIN 3.7 g/dL (3.5-5.0); CALCIUM 8.1 mg/dl (8.6-10.4)
[2017-12-14 15:24] LABS: LYMPHOCYTE 11 % (20-40); MONOCYTE 6 % (0-10); NEUTROPHIL 83 % (50-75); PLATELET ESTIMATE SLIGHTLY DECREASED (NORMAL); TOTAL CELLS COUNTED 100
[2017-12-14 15:26] LABS: ANISOCYTOSIS SLIGHT; HYPOCHROMIC SLIGHT; POIKILOCYTOSIS SLIGHT; TARGET CELLS SLIGHT
--- NOTE | 2017-12-14 21:46 | CP.PCM.HP ---
History of Present Illness - History of Present Illness History of Present Illness: CC: Abdominal pain HPI: 62-year-old male with a history of sarcoidosis, hypertension, diabetes, hyperlipidemia, CAD, with multiple stents, CABG, congestive heart failure, liver cirrhosis, osteoporosis and osteoarthritis. Patient is complaining of increasing abdominal distention, and also upper abdominal pain, and right flank pain. Patient started having the symptoms a few days ago, gradually got worse. Yesterday he was not able to breath. He was also complaining of some nausea, poor intake noted. Poor appetite present. He did not have any vomiting, no diarrhea noted. Patient is also having difficulty in going to the bathroom. Patient was getting the hemodialysis. Patient is also using home oxygen In the past patient was evaluated for transplant but because of the multiple medical problems it was not successful. Past medical history: As noted Surgical history: CABG, cholecystectomy, left arm AV fistula Medications noted from the chart Allergies no known drug allergies Personal history, nonsmoker nonalcoholic Family history noncontributory Review of system noted from the chart On examination: Patient is not in any distress now. Chest bilateral good air entry, decreased air entry in the lower lung rubin noted Regular heart sounds noted Abdomen distention, fluid thrill present Pedal edema 1+ on the right leg Patient also has loss of fingers on the right hand Labs reviewed Nonspecific. CT of the abdomen and pelvis showing evidence of pleural effusion, moderate to large, bilateral. Also moderate to large ascites noted. Assessment/plan: 62-year-old male with multiple medical history including sarcoidosis, hypertension, diabetes, hyperlipidemia, CAD, CABG, congestive heart failure, peripheral vascular disease, liver cirrhosis Admitted with a worsening abdominal distention, possible worsening decompensated liver disease, and ascites Patient may need frequent hemodialysis. Possible paracentesis. 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 Continue the current treatment. Bronchodilators and oxygen We'll follow the patient. Present on Admission - Present on Admission Any Indicators Present on Admission: No History of DVT/PE: No History of Uncontrolled Diabetes: No Urinary Catheter: No Decubitus Ulcer Present: No Past Patient History - Infectious Disease Hx of Infectious Diseases: None - Tetanus Immunizations Tetanus Immunization: Unknown - Past Medical History & Family History Past Medical History?: Yes Past Family History: Reviewed and not pertinent - Past Social History Smoking Status: Unknown If Ever Smoked Chewing Tobacco Use: No Cigar Use: No Alcohol: None Drugs: Denies Home Situation {Lives}: With Family - CARDIAC Hx Cardiac Disorders: Yes Hx Congestive Heart Failure: Yes Hx Hypercholesterolemia: Yes Hx Hypertension: Yes Hx Pacemaker: No Hx Peripheral Edema: Yes - PULMONARY Hx Respiratory Disorders: Yes Hx Asthma: Yes Hx Pneumonia: Yes - NEUROLOGICAL Hx Neurological Disorder: No Hx Paralysis: No - HEENT Hx HEENT Problems: Yes Hx Cataracts: Yes Hx Deafness: Yes Hx Glaucoma: Yes - RENAL Hx Chronic Kidney Disease: Yes Type of Dialysis Access: left arm av shunt Date of Last Dialysis Treatment: 12/13/17 Hx Kidney Stones: No - ENDOCRINE/METABOLIC Hx Endocrine Disorders: Yes Hx Diabetes Mellitus Type 2: Yes - HEMATOLOGICAL/ONCOLOGICAL Hx Blood Disorders: Yes Hx Anemia: Yes - INTEGUMENTARY Hx Dermatological Problems: No - MUSCULOSKELETAL/RHEUMATOLOGICAL Hx Musculoskeletal Disorders: No Hx Falls: No - GASTROINTESTINAL Hx Gastrointestinal Disorders: Yes Hx Constipation: Yes - GENITOURINARY/GYNECOLOGICAL Hx Genitourinary Disorders: No Hx Reproductive Disorders: No - PSYCHIATRIC Hx Psychophysiologic Disorder: Yes Hx Depression: Yes Hx Substance Use: No - SURGICAL HISTORY Hx Surgeries: Yes Hx Cholecystectomy: Yes Hx Coronary Artery Bypass Graft: Yes Hx Coronary Stent: Yes - ANESTHESIA Hx Anesthesia: Yes Hx Anesthesia Reactions: No Hx Malignant Hyperthermia: No Has any member of the family had a problem w/ anesthesia?: No Meds Allergies/Adverse Reactions: Allergies Allergy/AdvReac Type Severity Reaction Status Date / Time No Known Allergies Allergy Verified 12/14/17 00:48 Results - Vital Signs Recent Vital Signs: Last Vital Signs Temp 98.0 F 12/14/17 15:00 Pulse 78 12/14/17 15:00 Resp 20 12/14/17 15:00 BP 132/70 12/14/17 15:00 Pulse Ox 95 12/14/17 15:00 - Labs Result Diagrams: 12/14/17 14:38 12/14/17 14:38 Labs: Laboratory Results - last 24 hr 12/14/17 12/14/17 12/14/17 07:16 10:50 10:50 WBC RBC Hgb Hct MCV MCH MCHC RDW Plt Count MPV Neut % (Auto) Lymph % (Auto) [place] % (Auto) Eos % (Auto) Baso % (Auto) Neut # (Auto) Lymph # (Auto) [place] # (Auto) Eos # (Auto) Baso # (Auto) Neutrophils % (Manual) Lymphocytes % (Manual) Monocytes % (Manual) Platelet Estimate Hypochromasia (manual) Poikilocytosis (manual Anisocytosis (manual) Target Cells Sodium Potassium Chloride Carbon Dioxide Anion Gap BUN Creatinine Est GFR ( Amer) Est GFR (Non-Af Amer) POC Glucose (mg/dL) 88 Random Glucose Calcium Total Bilirubin AST ALT Alkaline Phosphatase Total Protein Albumin Globulin Albumin/Globulin Ratio Lipase 87 Alpha Fetoprotein 5.4 Urine Color Urine Clarity Urine pH Ur Specific [place] Urine Protein Urine Glucose (UA) Urine Ketones Urine Blood Urine Nitrate Urine Bilirubin Urine Urobilinogen Ur Leukocyte Esterase Urine WBC (Auto) Urine RBC (Auto) Ur Squamous Epith Cells Amorphous Sediment Urine Bacteria Hyaline Casts IgG Hepatitis A IgM Ab Hep Bs Antigen Hep B Core IgM Ab Hepatitis C Antibody 12/14/17 12/14/17 12/14/17 10:50 10:50 11:12 WBC RBC Hgb Hct MCV MCH MCHC RDW Plt Count MPV Neut % (Auto) Lymph % (Auto) [place] % (Auto) Eos % (Auto) Baso % (Auto) Neut # (Auto) Lymph # (Auto) [place] # (Auto) Eos # (Auto) Baso # (Auto) Neutrophils % (Manual) Lymphocytes % (Manual) Monocytes % (Manual) Platelet Estimate Hypochromasia (manual) Poikilocytosis (manual Anisocytosis (manual) Target Cells Sodium Potassium Chloride Carbon Dioxide Anion Gap BUN Creatinine Est GFR ( Amer) Est GFR (Non-Af Amer) POC Glucose (mg/dL) 162 H Random Glucose Calcium Total Bilirubin AST ALT Alkaline Phosphatase Total Protein Albumin Globulin Albumin/Globulin Ratio Lipase Alpha Fetoprotein Urine Color Urine Clarity Urine pH Ur Specific [place] Urine Protein Urine Glucose (UA) Urine Ketones Urine Blood Urine Nitrate Urine Bilirubin Urine Urobilinogen Ur Leukocyte Esterase Urine WBC (Auto) Urine RBC (Auto) Ur Squamous Epith Cells Amorphous Sediment Urine Bacteria Hyaline Casts IgG 2151.0 H Hepatitis A IgM Ab Negative Hep Bs Antigen Negative Hep B Core IgM Ab Negative Hepatitis C Antibody Negative 12/14/17 12/14/17 12/14/17 14:38 14:38 14:38 WBC 5.4 RBC 4.03 L Hgb 11.3 L Hct 33.4 L MCV 82.9 MCH 28.0 MCHC 33.7 RDW 17.6 H Plt Count 111 L MPV 10.3 Neut % (Auto) 84.4 H Lymph % (Auto) 6.0 L [place] % (Auto) 7.7 Eos % (Auto) 1.4 Baso % (Auto) 0.5 Neut # (Auto) 4.6 Lymph # (Auto) 0.3 L [place] # (Auto) 0.4 Eos # (Auto) 0.1 Baso # (Auto) 0.0 Neutrophils % (Manual) 83 H Lymphocytes % (Manual) 11 L Monocytes % (Manual) 6 Platelet Estimate Slightly decreased L Hypochromasia (manual) Slight Poikilocytosis (manual Slight Anisocytosis (manual) Slight Target Cells Slight Sodium 135 Potassium 5.1 Chloride 90 L Carbon Dioxide 30 Anion Gap 19 BUN 28 H Creatinine 4.8 H Est GFR ( Amer) 15 Est GFR (Non-Af Amer) 12 POC Glucose (mg/dL) Random Glucose 165 H Calcium 8.1 L Total Bilirubin 0.8 AST 64 H ALT 64 Alkaline Phosphatase 216 H Total Protein 7.5 Albumin 3.7 Globulin 3.7 Albumin/Globulin Ratio 1.0 Lipase Alpha Fetoprotein Urine Color [place] Urine Clarity Hazy Urine pH 5.0 Ur Specific [place] 1.023 Urine Protein 3+ H Urine Glucose (UA) Normal Urine Ketones Negative Urine Blood 1+ H Urine Nitrate Negative Urine Bilirubin Negative Urine Urobilinogen 2.0 Ur Leukocyte Esterase 2+ H Urine WBC (Auto) 69 H Urine RBC (Auto) 21 H Ur Squamous Epith Cells 1 Amorphous Sediment Rare H Urine Bacteria Few H Hyaline Casts 0-2 IgG Hepatitis A IgM Ab Hep Bs Antigen Hep B Core IgM Ab Hepatitis C Antibody 12/14/17 16:02 WBC RBC Hgb Hct MCV MCH MCHC RDW Plt Count MPV Neut % (Auto) Lymph % (Auto) [place] % (Auto) Eos % (Auto) Baso % (Auto) Neut # (Auto) Lymph # (Auto) [place] # (Auto) Eos # (Auto) Baso # (Auto) Neutrophils % (Manual) Lymphocytes % (Manual) Monocytes % (Manual) Platelet Estimate Hypochromasia (manual) Poikilocytosis (manual Anisocytosis (manual) Target Cells Sodium Potassium Chloride Carbon Dioxide Anion Gap BUN Creatinine Est GFR ( Amer) Est GFR (Non-Af Amer) POC Glucose (mg/dL) 159 H Random Glucose Calcium Total Bilirubin AST ALT Alkaline Phosphatase Total Protein Albumin Globulin Albumin/Globulin Ratio Lipase Alpha Fetoprotein Urine Color Urine Clarity Urine pH Ur Specific [place] Urine Protein Urine Glucose (UA) Urine Ketones Urine Blood Urine Nitrate Urine Bilirubin Urine Urobilinogen Ur Leukocyte Esterase Urine WBC (Auto) Urine RBC (Auto) Ur Squamous Epith Cells Amorphous Sediment Urine Bacteria Hyaline Casts IgG Hepatitis A IgM Ab Hep Bs Antigen Hep B Core IgM Ab Hepatitis C Antibody
--- NOTE | 2017-12-15 01:29 | US ---
EXAM: US Abdomen Complete CLINICAL HISTORY: 62 years old, male; Signs and symptoms; Other: Ascites; Patient HX: Lt kid lp cyst seen on sono today; Additional info: Ascitis TECHNIQUE: Real-time ultrasound of the abdomen (complete) with image documentation. COMPARISON: CT - ABD PELVIS W/O PO OR IV CONT 2017-12-13 22:47 FINDINGS: Liver: Lobulated contour. Heterogeneous echotexture. No discrete mass. No intrahepatic ductal dilatation. Pulsatile, bidirectional flow within portal vein. Gallbladder: Cholecystectomy. Common bile duct: Up to 0.88 cm in diameter. No stones. Pancreas: Unremarkable as visualized. Kidneys: Mild atrophy. Increased in echogenicity. 0.9 cm lower pole cyst left kidney. Nonvisualization of hyperdense lesion noted on CT. No hydronephrosis. Spleen: No splenomegaly. Aorta: Unremarkable. No aneurysm. Inferior vena cava: Unremarkable. Free fluid: Moderate to large free fluid within abdomen. Pleural space: Bilateral pleural effusions. IMPRESSION: 1. Cirrhosis. 2. Moderate to large ascites. 3. Bilateral pleural effusions. 4. Mildly prominent common bile duct. 5. Echogenic kidneys suggesting medical renal disease. 6. Nonvisualization of hyperdense lesion noted on CT. Suggest nonemergent MRI. 7. Incidental/non-acute findings are described above.
[2017-12-15] MEDS: Albuterol-Ipratrop 3 mg / 0.5 (3 ml) UD IH SCH ×4 (01:53→20:39)
[2017-12-15 07:30] LABS: BASO % 0.6 % (0.0-2.0); EOS # 0.1 K/uL (0.0-0.7); EOS % 2.7 % (0.0-4.0); HEMOGLOBIN 11.4 g/dL (12.0-18.0); LYMPH # 0.5 K/uL (1.0-4.3); LYMPH % 10.5 % (20.0-40.0); MEAN CELL VOLUME 83.5 fL (80.0-94.0); MEAN CORPUSCULAR HEMOGLOBIN 28.2 pg (27.0-31.0); MEAN CORPUSCULAR HGB CONC 33.8 g/dL (33.0-37.0); MEAN PLATELET VOLUME 10.7 fL (7.2-11.7); MONO # 0.6 K/uL (0.0-0.8); MONO % 11.5 % (0.0-10.0); NEUT # 3.8 K/uL (1.8-7.0); NEUT % 74.7 % (50.0-75.0); NRBC % 0.7 % (0.0-2.0); RBC 4.05 Mil/uL (4.40-5.90); RED CELL DISTRIBUTION WIDTH 17.6 % (11.5-14.5); WHITE BLOOD COUNT 5.1 K/uL (4.8-10.8)
[2017-12-15 07:41] LABS: ALBUMIN 3.8 g/dL (3.5-5.0); CALCIUM 8.3 mg/dl (8.6-10.4)
[2017-12-15] MEDS: (Novolin R) Insulin Human Regular 100 units/ml vial SC SCH ×4 (08:00→22:14)
[2017-12-15 08:12] LABS: INR 1.9
--- NOTE | 2017-12-15 08:48 | CP.PCM.PN ---
<Sia Munson - Last Filed: 12/15/17 09:09> Subjective - Date & Time of Evaluation Date of Evaluation: 12/15/17 Time of Evaluation: 08:00 - Subjective Subjective: PGY4 GI Follow-up Pt seen and examined bedside Denies any abd pain +voiding +BM Denies any SOB ROS: 10 point ROS conducted, neg other than above Objective - Vital Signs/Intake and Output Vital Signs (last 24 hours): Temp Pulse Resp BP Pulse Ox 98.1 F 72 20 105/56 L 98 12/15/17 00:00 12/15/17 00:00 12/15/17 00:00 12/15/17 00:00 12/15/17 00:00 - Medications Medications: Current Medications Albuterol/Ipratropium (Duoneb 3 Mg/0.5 Mg (3 Ml) Ud) 3 ml IH RQ6 [facility] Last Admin: 12/15/17 08:27 Dose: 3 ml Cilostazol (Pletal) 50 mg PO BID [facility] Last Admin: 12/14/17 18:00 Dose: 50 mg Docusate Sodium (Colace) 100 mg PO BID [facility] Furosemide (Lasix) 80 mg PO DAILY [facility] Last Admin: 12/14/17 10:32 Dose: 80 mg Gabapentin (Neurontin) 300 mg PO DAILY [facility] Last Admin: 12/14/17 10:35 Dose: 300 mg Insulin Human Regular (Novolin R) 0 unit SC [facility] PRN Reason: Protocol Last Admin: 12/15/17 08:00 Dose: Not Given Isosorbide Mononitrate (Imdur) 120 mg PO DAILY [facility] Lactulose (Enulose) 20 gm PO DAILY [facility] Last Admin: 12/14/17 12:18 Dose: 20 gm Metoprolol Tartrate (Lopressor) 50 mg PO BID [facility] Last Admin: 12/14/17 18:04 Dose: 50 mg Mupirocin (Bactroban Ointment) 0 gm TOP BID [facility] Last Admin: 12/14/17 18:00 Dose: 1 applic Prednisone (Prednisone Tab) 5 mg PO DAILY [facility] Last Admin: 12/14/17 10:36 Dose: 5 mg Rosuvastatin Calcium (Crestor) 5 mg PO HS [facility] Last Admin: 12/14/17 21:25 Dose: 5 mg - Labs Labs: 12/15/17 07:11 12/15/17 07:11 PT 22.0 SECONDS (9.7-12.2) H D 12/15/17 07:56 INR 1.9 D 12/15/17 07:56 APTT 32 SECONDS (21-34) 12/13/17 20:54 - Constitutional Appears: Well, No Acute Distress - Head Exam Head Exam: ATRAUMATIC, NORMOCEPHALIC - Eye Exam Eye Exam: Normal appearance - ENT Exam ENT Exam: Mucous Membranes Moist, Normal Exam - Respiratory Exam Respiratory Exam: Decreased Breath Sounds, NORMAL BREATHING PATTERN. absent: Rales, Rhonchi, Wheezes, Respiratory Distress - Cardiovascular Exam Cardiovascular Exam: REGULAR RHYTHM, +S1, +S2 - GI/Abdominal Exam GI & Abdominal Exam: Distended. absent: Guarding, Rigid, Tenderness, Normal Bowel Sounds, Organomegaly - Extremities Exam Extremities Exam: Pedal Edema. absent: Joint Swelling - Neurological Exam Neurological Exam: Alert, Awake, Oriented x3 - Psychiatric Exam Psychiatric exam: Normal Affect, Normal Mood - Skin Skin Exam: Dry, Intact, Normal Color, Warm Assessment and Plan - Assessment and Plan (Free Text) Assessment: Mr. Torres is a 62 year old Male with PMHx of ESRD (TTS), Sarcoidosis, HTN, DM, HLD, CAD with multiple stents, CABG, CHF, PVD, Osteoporosis, Osteoarthritis, Cirrhosis noted on CT Scan (hard of hearing, has hearing aids) presents with nausea, abdominal pain, and increased abdominal girth x 5 days with new onset ascites. New onset Ascites; etiology unknown; DDx: cardiac, renal, cirrhosis Cirrhosis Coagulopathy ESRD (TTS) Sarcoidosis Plan: - Low sodium diet as tolerated - IR guided, diagnostic parecentesis, will send fluid for cytology, cell count, albumin - will calculate SAAG - If peritoneal fluid > 5L removed, replete with IV albumin 6-8g/ extra L removed - Abdominal US performed 12/11/17 at [place] - negative for portal or splenic vein thrombosis - Obtain viral hepatitis and autoimmune serologies - Will continue to monitor patient's clinical course - If going to IR today, will give FFp to decrease INR DW Dr. Cullen, <César Cullen Y - Last Filed: 12/15/17 12:36> Objective - Vital Signs/Intake and Output Vital Signs (last 24 hours): Temp Pulse Resp BP Pulse Ox 97.4 F L 80 16 173/81 H 100 12/15/17 09:10 12/15/17 09:10 12/15/17 09:10 12/15/17 12:22 12/15/17 09:10 - Medications Medications: Current Medications Albuterol/Ipratropium (Duoneb 3 Mg/0.5 Mg (3 Ml) Ud) 3 ml IH RQ6 [facility] Last Admin: 12/15/17 08:27 Dose: 3 ml Cilostazol (Pletal) 50 mg PO BID [facility] Last Admin: 12/15/17 09:04 Dose: Not Given Docusate Sodium (Colace) 100 mg PO BID [facility] Last Admin: 12/15/17 09:04 Dose: Not Given Furosemide (Lasix) 80 mg PO DAILY [facility] Last Admin: 12/14/17 10:32 Dose: 80 mg Gabapentin (Neurontin) 300 mg PO DAILY [facility] Last Admin: 12/14/17 10:35 Dose: 300 mg Insulin Human Regular (Novolin R) 0 unit SC [facility] PRN Reason: Protocol Last Admin: 12/15/17 12:32 Dose: Not Given Isosorbide Mononitrate (Imdur) 120 mg PO DAILY [facility] Lactulose (Enulose) 20 gm PO DAILY [facility] Last Admin: 12/14/17 12:18 Dose: 20 gm Metoprolol Tartrate (Lopressor) 50 mg PO BID [facility] Last Admin: 12/15/17 09:04 Dose: Not Given Mupirocin (Bactroban Ointment) 0 gm TOP BID [facility] Last Admin: 12/15/17 09:04 Dose: Not Given Prednisone (Prednisone Tab) 5 mg PO DAILY [facility] Last Admin: 12/14/17 10:36 Dose: 5 mg Rosuvastatin Calcium (Crestor) 5 mg PO HS [facility] Last Admin: 12/14/17 21:25 Dose: 5 mg - Labs Labs: 12/15/17 07:11 12/15/17 07:11 PT 22.7 SECONDS (9.7-12.2) H 12/15/17 11:43 INR 1.9 12/15/17 11:43 APTT 32 SECONDS (21-34) 12/13/17 20:54 Attending/Attestation - Attestation I have personally seen and examined this patient.: Yes I have fully participated in the care of the patient.: Yes I have reviewed all pertinent clinical information, including history, physical exam and plan: Yes Notes (Text): 12/15/17 12:32 I have seen and examined patient with GI fellow. No acute events overnight, he is seen sitting at bedside, appears quite comfortable. Breathing has improved, he denies abdominal pain, nausea, vomiting, fever/chills. Tolerating PO diet without difficulty. Review of vitals from today are normal. ESRD on HD HTN / DM Sarcoidosis CAD/CABG Increased abdominal girth, ascites Cirrhosis - unclear etiology - Low sodium diet as tolerated - Plan for diagnostic paracentesis today for further evaluation of new onset ascites - Awaiting viral hepatitis and autoimmune serologies - Continue with lactulose for HE prevention - Follow up pulmonary recommendations - Will continue to monitor patient clinical course
[2017-12-15] MEDS: Cilostazol 50 mg Tab UD PO SCH ×2 (09:04→17:29)
--- NOTE | 2017-12-15 09:42 | CP.PCM.PN ---
Subjective - Date & Time of Evaluation Date of Evaluation: 12/15/17 Time of Evaluation: 09:39 - Subjective Subjective: Seen at dialysis now feels same BP controlled labs acceptable will UF 3000ml now for paracentesis later no n, v, f, c SOB Objective - Vital Signs/Intake and Output Vital Signs (last 24 hours): Temp Pulse Resp BP Pulse Ox 98.5 F 70 20 110/56 L 97 12/15/17 08:59 12/15/17 08:59 12/15/17 08:59 12/15/17 08:59 12/15/17 08:59 - Medications Medications: Current Medications Albuterol/Ipratropium (Duoneb 3 Mg/0.5 Mg (3 Ml) Ud) 3 ml IH RQ6 [facility] Last Admin: 12/15/17 08:27 Dose: 3 ml Cilostazol (Pletal) 50 mg PO BID [facility] Last Admin: 12/15/17 09:04 Dose: Not Given Docusate Sodium (Colace) 100 mg PO BID [facility] Last Admin: 12/15/17 09:04 Dose: Not Given Furosemide (Lasix) 80 mg PO DAILY [facility] Last Admin: 12/14/17 10:32 Dose: 80 mg Gabapentin (Neurontin) 300 mg PO DAILY [facility] Last Admin: 12/14/17 10:35 Dose: 300 mg Insulin Human Regular (Novolin R) 0 unit SC [facility] PRN Reason: Protocol Last Admin: 12/15/17 08:00 Dose: Not Given Isosorbide Mononitrate (Imdur) 120 mg PO DAILY [facility] Lactulose (Enulose) 20 gm PO DAILY [facility] Last Admin: 12/14/17 12:18 Dose: 20 gm Metoprolol Tartrate (Lopressor) 50 mg PO BID [facility] Last Admin: 12/15/17 09:04 Dose: Not Given Mupirocin (Bactroban Ointment) 0 gm TOP BID [facility] Last Admin: 12/15/17 09:04 Dose: Not Given Prednisone (Prednisone Tab) 5 mg PO DAILY [facility] Last Admin: 12/14/17 10:36 Dose: 5 mg Rosuvastatin Calcium (Crestor) 5 mg PO HS [facility] Last Admin: 12/14/17 21:25 Dose: 5 mg - Labs Labs: 12/15/17 07:11 12/15/17 07:11 PT 22.0 SECONDS (9.7-12.2) H D 12/15/17 07:56 INR 1.9 D 12/15/17 07:56 APTT 32 SECONDS (21-34) 12/13/17 20:54 - Constitutional Appears: No Acute Distress, Chronically Ill - Head Exam Head Exam: ATRAUMATIC, NORMAL INSPECTION - Eye Exam Eye Exam: EOMI, Normal appearance - Neck Exam Neck Exam: Normal Inspection. absent: Tenderness - Respiratory Exam Respiratory Exam: Clear to Ausculation Bilateral, NORMAL BREATHING PATTERN - Cardiovascular Exam Cardiovascular Exam: REGULAR RHYTHM, +S1 - GI/Abdominal Exam GI & Abdominal Exam: Soft. absent: Tenderness - Extremities Exam Extremities Exam: Normal Inspection. absent: Tenderness - Neurological Exam Neurological Exam: Awake, CN II-XII Intact - Skin Skin Exam: Dry, Warm Assessment and Plan (1) Type 2 diabetes mellitus with diabetic nephropathy Status: Acute (2) Hypertension associated with chronic kidney disease due to type 2 diabetes mellitus Status: Acute (3) Cirrhosis of liver not due to alcohol Status: Acute (4) CAD (coronary artery disease) Status: Chronic - Assessment and Plan (Free Text) Plan: dialysis with aggressive fluid removal paracentesis pending liver workup
[2017-12-15 11:41] LABS: INR 1.9; PROTHROMBIN TIME 22.7 SECONDS (9.7-12.2)
--- NOTE | 2017-12-15 15:14 | CP.PCM.PN ---
Subjective - Date & Time of Evaluation Date of Evaluation: 12/15/17 Time of Evaluation: 15:14 - Subjective Subjective: Patient is feeling better. Currently receiving hemodialysis. This morning he a better. Denies any abdominal pain. Right flank pain still noted, but otherwise patient is feeling okay. On examination: HEENT PERRLA, neck supple No thyromegaly was noted and no cervical adenopathy noted Decreased lung sounds in the lung bases CVS regular heart sound, no murmur Abdomen distention Pedal edema [employer] alert awake oriented x3 no functional neurological deficit. Assessment and recommendation: 62-year-old male with multiple medical history, sarcoidosis, hypertension, congestive heart failure, diabetes, chronic lung disease on home O2 admitted with abdominal pain, distention and possible fluid overload state. Currently receiving dialysis. Will do a paracentesis tomorrow. Patient possibly has a liver cirrhosis also, and a fluid overload. Diuretics is not working, patient not making much urine. Objective - Vital Signs/Intake and Output Vital Signs (last 24 hours): Temp Pulse Resp BP Pulse Ox 98.2 F 81 20 158/76 H 95 12/15/17 13:09 12/15/17 13:09 12/15/17 13:09 12/15/17 13:09 12/15/17 13:09 - Medications Medications: Current Medications Albuterol/Ipratropium (Duoneb 3 Mg/0.5 Mg (3 Ml) Ud) 3 ml IH RQ6 [facility] Last Admin: 12/15/17 14:09 Dose: 3 ml Cilostazol (Pletal) 50 mg PO BID [facility] Last Admin: 12/15/17 09:04 Dose: Not Given Docusate Sodium (Colace) 100 mg PO BID [facility] Last Admin: 12/15/17 09:04 Dose: Not Given Furosemide (Lasix) 80 mg PO DAILY [facility] Last Admin: 12/15/17 13:09 Dose: 80 mg Gabapentin (Neurontin) 300 mg PO DAILY [facility] Last Admin: 12/15/17 13:09 Dose: 300 mg Insulin Human Regular (Novolin R) 0 unit SC [facility] PRN Reason: Protocol Last Admin: 12/15/17 12:32 Dose: Not Given Isosorbide Mononitrate (Imdur) 120 mg PO DAILY [facility] Last Admin: 12/15/17 13:09 Dose: 120 mg Lactulose (Enulose) 20 gm PO DAILY [facility] Last Admin: 12/15/17 13:10 Dose: 20 gm Metoprolol Tartrate (Lopressor) 50 mg PO BID [facility] Last Admin: 12/15/17 09:04 Dose: Not Given Mupirocin (Bactroban Ointment) 0 gm TOP BID [facility] Last Admin: 12/15/17 09:04 Dose: Not Given Prednisone (Prednisone Tab) 5 mg PO DAILY [facility] Last Admin: 12/15/17 13:09 Dose: 5 mg Rosuvastatin Calcium (Crestor) 5 mg PO HS [facility] Last Admin: 12/14/17 21:25 Dose: 5 mg - Labs Labs: 12/15/17 07:11 12/15/17 07:11 PT 22.7 SECONDS (9.7-12.2) H 12/15/17 11:43 INR 1.9 12/15/17 11:43 APTT 32 SECONDS (21-34) 12/13/17 20:54
[2017-12-16] MEDS: Albuterol-Ipratrop 3 mg / 0.5 (3 ml) UD IH SCH ×4 (01:42→19:45)
[2017-12-16 06:17] LABS: BASO % 1.2 % (0.0-2.0); EOS # 0.1 K/uL (0.0-0.7); EOS % 2.7 % (0.0-4.0); HEMOGLOBIN 10.3 g/dL (12.0-18.0); LYMPH # 0.4 K/uL (1.0-4.3); LYMPH % 10.3 % (20.0-40.0); MEAN CORPUSCULAR HEMOGLOBIN 28.2 pg (27.0-31.0); MEAN CORPUSCULAR HGB CONC 33.9 g/dL (33.0-37.0); MEAN PLATELET VOLUME 9.6 fL (7.2-11.7); MONO # 0.5 K/uL (0.0-0.8); MONO % 11.5 % (0.0-10.0); NEUT # 3.1 K/uL (1.8-7.0); NEUT % 74.3 % (50.0-75.0); NRBC % 0.3 % (0.0-2.0); RBC 3.67 Mil/uL (4.40-5.90); RED CELL DISTRIBUTION WIDTH 18.3 % (11.5-14.5); WHITE BLOOD COUNT 4.2 K/uL (4.8-10.8)
[2017-12-16 06:34] LABS: INR 1.6; PROTHROMBIN TIME 18.7 SECONDS (9.7-12.2)
[2017-12-16 06:36] LABS: ALBUMIN 3.4 g/dL (3.5-5.0); CALCIUM 7.8 mg/dl (8.6-10.4)
[2017-12-16] MEDS: (Novolin R) Insulin Human Regular 100 units/ml vial SC SCH ×4 (08:28→21:35)
--- NOTE | 2017-12-16 08:33 | CP.PCM.PN ---
<Mireya Gonzalez - Last Filed: 12/16/17 11:35> Subjective - Date & Time of Evaluation Date of Evaluation: 12/16/17 Time of Evaluation: 07:00 - Subjective Subjective: Gastroenterology Follow Up Note Patient was seen and examined at beside. Patient reports he is tolerating his diet, normal bowel movements. Denied any shortness of breath or abdominal pain. 12 point ROS unremarkable. Objective - Vital Signs/Intake and Output Vital Signs (last 24 hours): Temp Pulse Resp BP Pulse Ox 97.5 F L 72 20 137/70 95 12/16/17 08:00 12/16/17 08:00 12/16/17 08:00 12/16/17 08:00 12/16/17 08:00 Intake and Output: 12/16/17 12/16/17 06:59 18:59 Intake Total 0 Balance 0 - Medications Medications: Current Medications Albuterol/Ipratropium (Duoneb 3 Mg/0.5 Mg (3 Ml) Ud) 3 ml IH RQ6 [facility] Last Admin: 12/16/17 08:21 Dose: 3 ml Cilostazol (Pletal) 50 mg PO BID [facility] Last Admin: 12/15/17 17:29 Dose: 50 mg Docusate Sodium (Colace) 100 mg PO BID [facility] Last Admin: 12/15/17 17:30 Dose: 100 mg Furosemide (Lasix) 80 mg PO DAILY [facility] Last Admin: 12/15/17 13:09 Dose: 80 mg Gabapentin (Neurontin) 300 mg PO DAILY [facility] Last Admin: 12/15/17 13:09 Dose: 300 mg Insulin Human Regular (Novolin R) 0 unit SC [facility] PRN Reason: Protocol Last Admin: 12/16/17 08:28 Dose: Not Given Isosorbide Mononitrate (Imdur) 120 mg PO DAILY [facility] Last Admin: 12/15/17 13:09 Dose: 120 mg Lactulose (Enulose) 20 gm PO DAILY [facility] Last Admin: 12/15/17 13:10 Dose: 20 gm Metoprolol Tartrate (Lopressor) 50 mg PO BID [facility] Last Admin: 12/15/17 17:29 Dose: 50 mg Mupirocin (Bactroban Ointment) 0 gm TOP BID [facility] Last Admin: 12/15/17 17:32 Dose: 1 applic Prednisone (Prednisone Tab) 5 mg PO DAILY [facility] Last Admin: 12/15/17 13:09 Dose: 5 mg Rosuvastatin Calcium (Crestor) 5 mg PO HS [facility] Last Admin: 12/15/17 21:37 Dose: 5 mg - Labs Labs: 12/16/17 06:13 12/16/17 06:13 PT 18.7 SECONDS (9.7-12.2) H 12/16/17 06:13 INR 1.6 12/16/17 06:13 APTT 31 SECONDS (21-34) 12/16/17 06:13 - Constitutional Appears: No Acute Distress - Head Exam Head Exam: NORMAL INSPECTION, NORMOCEPHALIC - Eye Exam Eye Exam: EOMI, Normal appearance, PERRL Pupil Exam: NORMAL ACCOMODATION - ENT Exam ENT Exam: Mucous Membranes Moist - Neck Exam Neck Exam: Normal Inspection - Respiratory Exam Respiratory Exam: Clear to Ausculation Bilateral, NORMAL BREATHING PATTERN - Cardiovascular Exam Cardiovascular Exam: REGULAR RHYTHM - GI/Abdominal Exam GI & Abdominal Exam: Distended (Ascites ), Soft, Normal Bowel Sounds. absent: Tenderness, Organomegaly - Rectal Exam Rectal Exam: Deferred - Extremities Exam Extremities Exam: Normal Inspection. absent: Pedal Edema, Tenderness - Neurological Exam Neurological Exam: Alert, Awake, Oriented x3 - Psychiatric Exam Psychiatric exam: Normal Affect, Normal Mood - Skin Skin Exam: Dry, Intact, Normal Color, Warm Assessment and Plan - Assessment and Plan (Free Text) Assessment: Mr. Torres is a 62 year old Male with PMHx of ESRD (TTS), Sarcoidosis, HTN, DM, HLD, CAD with multiple stents, CABG, CHF, PVD, Osteoporosis, Osteoarthritis, Cirrhosis noted on CT Scan (hard of hearing, has hearing aids) presents with nausea, abdominal pain, and increased abdominal girth x 5 days with new onset ascites. Increased abdominal girth, ascites Cirrhosis - unclear etiology ESRD on HD (TTS) HTN / DM Sarcoidosis CAD/CABG Plan: - Low sodium diet as tolerated - S/P paracentesis today for further evaluation of new onset ascites, 1.2L removed; will calculate SAAG, follow up cytology, albumin and total protein - Abdominal US performed 12/11/17 at [place] - negative for portal or splenic vein thrombosis - Viral hepatitis and autoimmune serologies negative - Continue with lactulose for HE prevention - Will continue to monitor patient clinical course DW Dr. Hernández, Mireya Minorara DO, PGY-1 <Bailey Hernández - Last Filed: 12/16/17 21:55> Objective - Vital Signs/Intake and Output Vital Signs (last 24 hours): Temp Pulse Resp BP Pulse Ox 97.6 F 78 20 127/56 L 99 12/16/17 15:06 12/16/17 15:06 12/16/17 15:06 12/16/17 15:06 12/16/17 15:06 Intake and Output: 12/16/17 12/17/17 18:59 06:59 Intake Total 400 Balance 400 - Medications Medications: Current Medications Albuterol/Ipratropium (Duoneb 3 Mg/0.5 Mg (3 Ml) Ud) 3 ml IH RQ6 [facility] Last Admin: 12/16/17 19:45 Dose: 3 ml Cilostazol (Pletal) 50 mg PO BID [facility] Last Admin: 12/16/17 18:00 Dose: 50 mg Docusate Sodium (Colace) 100 mg PO BID [facility] Last Admin: 12/16/17 17:51 Dose: 100 mg Furosemide (Lasix) 80 mg PO DAILY [facility] Last Admin: 12/16/17 11:15 Dose: 80 mg Gabapentin (Neurontin) 300 mg PO DAILY [facility] Last Admin: 12/16/17 11:14 Dose: 300 mg Insulin Human Regular (Novolin R) 0 unit SC [facility] PRN Reason: Protocol Last Admin: 12/16/17 21:35 Dose: Not Given Isosorbide Mononitrate (Imdur) 120 mg PO DAILY [facility] Last Admin: 12/16/17 11:14 Dose: 120 mg Lactulose (Enulose) 20 gm PO DAILY [facility] Last Admin: 12/16/17 11:23 Dose: 20 gm Metoprolol Tartrate (Lopressor) 50 mg PO BID [facility] Last Admin: 12/16/17 17:51 Dose: 50 mg Mupirocin (Bactroban Ointment) 0 gm TOP BID [facility] Last Admin: 12/16/17 21:00 Dose: 1 applic Prednisone (Prednisone Tab) 5 mg PO DAILY [facility] Last Admin: 12/16/17 11:16 Dose: 5 mg Rosuvastatin Calcium (Crestor) 5 mg PO HS [facility] Last Admin: 12/16/17 21:36 Dose: 5 mg - Labs Labs: 12/16/17 06:13 12/16/17 06:13 PT 18.7 SECONDS (9.7-12.2) H 12/16/17 06:13 INR 1.6 12/16/17 06:13 APTT 31 SECONDS (21-34) 12/16/17 06:13 Attending/Attestation - Attestation I have personally seen and examined this patient.: Yes I have fully participated in the care of the patient.: Yes I have reviewed all pertinent clinical information, including history, physical exam and plan: Yes Notes (Text): 12/16/17 21:53 I have seen and examined patient with GI fellow. 62 yr old M with ESRD on HD, HTN, DM, Sarcoidosis, CAD/CABG, with new onset ascites. No acute events overnight, he is seen sitting at bedside, appears quite comfortable. Breathing has improved, he denies abdominal pain, nausea, vomiting, fever/chills. Tolerating PO diet without difficulty. Review of vitals from today are normal. Diagnostic paracentesis was done- results pending. Low sodium diet. Continue with lactulose for HE prevention. Follow up pulmonary recommendations. Will continue to monitor patient clinical course
--- NOTE | 2017-12-16 09:53 | PCM.SURG1 ---
Surgeon's Initial Post Op Note - Surgeon's Notes Surgeon: Hema Stevens MD Facetor: NONE Type of Anesthesia: Local Pre-Operative Diagnosis: Ascites, cirrhosis, ESRD Operative Findings: US showed a small amount of ascites Post-Operative Diagnosis: Ascites, ESRD Operation Performed: US guided paracentesis Specimen/Specimens Removed: 1200 cc of slight serosanguinous fluid Estimated Blood Loss: EBL {In ML}: 0 Blood Products Given: N/A Drains Used: No Drains Post-Op Condition: Fair Date of Surgery/Procedure: 12/16/17 Time of Surgery/Procedure: 09:50
[2017-12-16 10:04] LABS: CERULOPLASMIN 34 mg/dL (18-36)
[2017-12-16] MEDS: Cilostazol 50 mg Tab UD PO SCH ×2 (11:16→18:00)
--- NOTE | 2017-12-16 11:25 | US ---
Date of Procedure: 12/16/2017 PROCEDURE: Ultrasound-guided paracentesis, CPT 12853 Medications: 7 cc 1% Lidocaine HISTORY: Ascites, abdominal pain TECHNIQUE: Following informed consent , the patient was placed supine on the stretcher and the site was marked. A limited abdominal ultrasound was performed that showed small amount of intra-abdominal fluid. Procedural time out was called and the Pt's abdomen was marked and prepped and draped in the usual sterile fashion. Ultrasound-guided large volume paracentesis performed. A total of 1200 cc serosanguinous fluid was removed without complication. Fluid specimen was sent for culture, sensitivity, cytology and chemistries. IMPRESSION: Ultrasound-guided paracentesis.
[2017-12-16 12:16] LABS: BODY FLUID TYPE PERITONEAL/ASCITES
--- NOTE | 2017-12-16 12:56 | CP.PCM.PN ---
Subjective - Date & Time of Evaluation Date of Evaluation: 12/16/17 Time of Evaluation: 12:54 - Subjective Subjective: s/p paracentesis- 1200ml ascites removed s/p dialysis 12/15- UF 3000ml feels better not dyspneic, no CPs, n, v, f, chills Objective - Vital Signs/Intake and Output Vital Signs (last 24 hours): Temp Pulse Resp BP Pulse Ox 97.5 F L 72 20 137/70 95 12/16/17 08:00 12/16/17 08:00 12/16/17 08:00 12/16/17 11:15 12/16/17 08:00 Intake and Output: 12/16/17 12/16/17 06:59 18:59 Intake Total 0 Balance 0 - Medications Medications: Current Medications Albuterol/Ipratropium (Duoneb 3 Mg/0.5 Mg (3 Ml) Ud) 3 ml IH RQ6 [facility] Last Admin: 12/16/17 08:21 Dose: 3 ml Cilostazol (Pletal) 50 mg PO BID [facility] Last Admin: 12/16/17 11:16 Dose: 50 mg Docusate Sodium (Colace) 100 mg PO BID [facility] Last Admin: 12/16/17 11:14 Dose: 100 mg Furosemide (Lasix) 80 mg PO DAILY [facility] Last Admin: 12/16/17 11:15 Dose: 80 mg Gabapentin (Neurontin) 300 mg PO DAILY [facility] Last Admin: 12/16/17 11:14 Dose: 300 mg Insulin Human Regular (Novolin R) 0 unit SC [facility] PRN Reason: Protocol Last Admin: 12/16/17 11:41 Dose: 1 unit Isosorbide Mononitrate (Imdur) 120 mg PO DAILY [facility] Last Admin: 12/16/17 11:14 Dose: 120 mg Lactulose (Enulose) 20 gm PO DAILY [facility] Last Admin: 12/16/17 11:23 Dose: 20 gm Metoprolol Tartrate (Lopressor) 50 mg PO BID [facility] Last Admin: 12/16/17 11:20 Dose: 50 mg Mupirocin (Bactroban Ointment) 0 gm TOP BID [facility] Last Admin: 12/16/17 11:17 Dose: 1 applic Prednisone (Prednisone Tab) 5 mg PO DAILY [facility] Last Admin: 12/16/17 11:16 Dose: 5 mg Rosuvastatin Calcium (Crestor) 5 mg PO HS [facility] Last Admin: 12/15/17 21:37 Dose: 5 mg - Labs Labs: 12/16/17 06:13 12/16/17 06:13 PT 18.7 SECONDS (9.7-12.2) H 12/16/17 06:13 INR 1.6 12/16/17 06:13 APTT 31 SECONDS (21-34) 12/16/17 06:13 - Constitutional Appears: No Acute Distress, Chronically Ill - Head Exam Head Exam: ATRAUMATIC, NORMAL INSPECTION - Eye Exam Eye Exam: EOMI, Normal appearance - Neck Exam Neck Exam: Normal Inspection. absent: Tenderness - Respiratory Exam Respiratory Exam: Clear to Ausculation Bilateral, NORMAL BREATHING PATTERN - Cardiovascular Exam Cardiovascular Exam: REGULAR RHYTHM, +S1 - GI/Abdominal Exam GI & Abdominal Exam: Distended, Soft - Extremities Exam Extremities Exam: Normal Inspection. absent: Tenderness - Neurological Exam Neurological Exam: Alert, CN II-XII Intact - Skin Skin Exam: Dry, Warm Assessment and Plan (1) Type 2 diabetes mellitus with diabetic nephropathy Status: Acute (2) Hypertension associated with chronic kidney disease due to type 2 diabetes mellitus Status: Acute (3) Cirrhosis of liver not due to alcohol Status: Acute (4) CAD (coronary artery disease) Status: Chronic - Assessment and Plan (Free Text) Plan: repeat dialysis TTS UF about 3 kg as tolerated await ascites evaluation
[2017-12-16 13:01] LABS: BF GROSS APPEARANCE BLOODY (CLEAR); BODY FLUID TOTAL COUNT 100 (0-0)
[2017-12-16 13:02] LABS: BODY FLUID MONO/MACROPHAGE 2 % (0-0)
--- NOTE | 2017-12-16 14:48 | CP.PCM.PN ---
Subjective - Date & Time of Evaluation Date of Evaluation: 12/16/17 Time of Evaluation: 14:49 - Subjective Subjective: Patient had hemodialysis yesterday. Today he underwent paracentesis, 1.2 liters of fluid removed. The abdomen is less swelling. Denies any abdominal pain. No nausea, vomiting eating better. Had a BM today. 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 Assessment/plan: 62 male with history of chronic liver disease, hypertension, CAD, status post open-heart surgery, peripheral vascular disease, stent in the past, end-stage renal disease on dialysis, admitted with the worsening abdominal distention, possible exacerbation of ascites, and associate with the shortness of breath. Status post a present as is. He will get his hemodialysis tomorrow, after that her discharge the patient Objective - Vital Signs/Intake and Output Vital Signs (last 24 hours): Temp Pulse Resp BP Pulse Ox 97.5 F L 72 20 137/70 95 12/16/17 08:00 12/16/17 08:00 12/16/17 08:00 12/16/17 11:15 12/16/17 08:00 Intake and Output: 12/16/17 12/16/17 06:59 18:59 Intake Total 0 Balance 0 - Medications Medications: Current Medications Albuterol/Ipratropium (Duoneb 3 Mg/0.5 Mg (3 Ml) Ud) 3 ml IH RQ6 [facility] Last Admin: 12/16/17 14:07 Dose: 3 ml Cilostazol (Pletal) 50 mg PO BID [facility] Last Admin: 12/16/17 11:16 Dose: 50 mg Docusate Sodium (Colace) 100 mg PO BID [facility] Last Admin: 12/16/17 11:14 Dose: 100 mg Furosemide (Lasix) 80 mg PO DAILY [facility] Last Admin: 12/16/17 11:15 Dose: 80 mg Gabapentin (Neurontin) 300 mg PO DAILY [facility] Last Admin: 12/16/17 11:14 Dose: 300 mg Insulin Human Regular (Novolin R) 0 unit SC [facility] PRN Reason: Protocol Last Admin: 12/16/17 11:41 Dose: 1 unit Isosorbide Mononitrate (Imdur) 120 mg PO DAILY [facility] Last Admin: 12/16/17 11:14 Dose: 120 mg Lactulose (Enulose) 20 gm PO DAILY [facility] Last Admin: 12/16/17 11:23 Dose: 20 gm Metoprolol Tartrate (Lopressor) 50 mg PO BID [facility] Last Admin: 12/16/17 11:20 Dose: 50 mg Mupirocin (Bactroban Ointment) 0 gm TOP BID [facility] Last Admin: 12/16/17 11:17 Dose: 1 applic Prednisone (Prednisone Tab) 5 mg PO DAILY [facility] Last Admin: 12/16/17 11:16 Dose: 5 mg Rosuvastatin Calcium (Crestor) 5 mg PO HS [facility] Last Admin: 12/15/17 21:37 Dose: 5 mg - Labs Labs: 12/16/17 06:13 12/16/17 06:13 PT 18.7 SECONDS (9.7-12.2) H 12/16/17 06:13 INR 1.6 12/16/17 06:13 APTT 31 SECONDS (21-34) 12/16/17 06:13
[2017-12-17] MEDS: Albuterol-Ipratrop 3 mg / 0.5 (3 ml) UD IH SCH ×3 (01:31→13:20)
[2017-12-17] MEDS: (Novolin R) Insulin Human Regular 100 units/ml vial SC SCH ×3 (08:17→18:02)
--- NOTE | 2017-12-17 09:22 | CP.PCM.PN ---
Subjective - Date & Time of Evaluation Date of Evaluation: 12/17/17 Time of Evaluation: 09:19 - Subjective Subjective: Seen in HD treatment starting; BP stable To UF 3100ml with HD no new chemistries- have been stable cirrhosis possibly due to cardiac hypoperfusion, ie cardiac cirrhosis- no treatment possible still with likely ascites post paracentesis need to keep EDW low as possible Objective - Vital Signs/Intake and Output Vital Signs (last 24 hours): Temp Pulse Resp BP Pulse Ox 97.8 F 80 20 143/58 L 95 12/17/17 00:00 12/17/17 00:00 12/17/17 00:00 12/17/17 00:00 12/17/17 00:00 - Medications Medications: Current Medications Albuterol/Ipratropium (Duoneb 3 Mg/0.5 Mg (3 Ml) Ud) 3 ml IH RQ6 [facility] Last Admin: 12/17/17 09:06 Dose: Not Given Cilostazol (Pletal) 50 mg PO BID [facility] Last Admin: 12/16/17 18:00 Dose: 50 mg Docusate Sodium (Colace) 100 mg PO BID [facility] Last Admin: 12/16/17 17:51 Dose: 100 mg Furosemide (Lasix) 80 mg PO DAILY [facility] Last Admin: 12/16/17 11:15 Dose: 80 mg Gabapentin (Neurontin) 300 mg PO DAILY [facility] Last Admin: 12/16/17 11:14 Dose: 300 mg Insulin Human Regular (Novolin R) 0 unit SC [facility] PRN Reason: Protocol Last Admin: 12/17/17 08:17 Dose: 2 unit Isosorbide Mononitrate (Imdur) 120 mg PO DAILY [facility] Last Admin: 12/16/17 11:14 Dose: 120 mg Lactulose (Enulose) 20 gm PO DAILY [facility] Last Admin: 12/16/17 11:23 Dose: 20 gm Metoprolol Tartrate (Lopressor) 50 mg PO BID [facility] Last Admin: 12/16/17 17:51 Dose: 50 mg Mupirocin (Bactroban Ointment) 0 gm TOP BID [facility] Last Admin: 12/16/17 21:00 Dose: 1 applic Prednisone (Prednisone Tab) 5 mg PO DAILY [facility] Last Admin: 12/16/17 11:16 Dose: 5 mg Rosuvastatin Calcium (Crestor) 5 mg PO HS [facility] Last Admin: 12/16/17 21:36 Dose: 5 mg - Labs Labs: 12/16/17 06:13 12/16/17 06:13 PT 18.7 SECONDS (9.7-12.2) H 12/16/17 06:13 INR 1.6 12/16/17 06:13 APTT 31 SECONDS (21-34) 12/16/17 06:13 - Constitutional Appears: No Acute Distress, Chronically Ill - Head Exam Head Exam: ATRAUMATIC, NORMAL INSPECTION - Eye Exam Eye Exam: EOMI, Normal appearance - Neck Exam Neck Exam: Normal Inspection. absent: Tenderness - Respiratory Exam Respiratory Exam: Clear to Ausculation Bilateral, NORMAL BREATHING PATTERN - Cardiovascular Exam Cardiovascular Exam: Irregular Rhythm, +S1 - GI/Abdominal Exam GI & Abdominal Exam: Distended, Soft. absent: Tenderness - Extremities Exam Extremities Exam: Normal Inspection. absent: Tenderness - Neurological Exam Neurological Exam: Alert, CN II-XII Intact - Skin Skin Exam: Dry, Warm Assessment and Plan (1) Type 2 diabetes mellitus with diabetic nephropathy Status: Acute (2) Hypertension associated with chronic kidney disease due to type 2 diabetes mellitus Status: Acute (3) Cirrhosis of liver not due to alcohol Status: Acute (4) CAD (coronary artery disease) Status: Chronic - Assessment and Plan (Free Text) Plan: UF 3-3.2Kg with HD Might need paracentesis periodically
[2017-12-17] MEDS: Cilostazol 50 mg Tab UD PO SCH (10:44)
--- NOTE | 2017-12-17 15:06 | CP.PCM.PN ---
<Sia Munson - Last Filed: 12/17/17 15:07> Subjective - Date & Time of Evaluation Date of Evaluation: 12/17/17 Time of Evaluation: 10:00 - Subjective Subjective: PGY4 GI Follow-up note no complaints s/p paracentesis yesterday HD today tolerating diet ROS: 10 point ROS conducted, neg other than above Objective - Vital Signs/Intake and Output Vital Signs (last 24 hours): Temp Pulse Resp BP Pulse Ox 97.7 F 79 17 166/85 H 95 12/17/17 12:15 12/17/17 12:15 12/17/17 12:15 12/17/17 13:36 12/17/17 12:15 Intake and Output: 12/17/17 12/17/17 06:59 18:59 Intake Total 350 Balance 350 - Medications Medications: Current Medications Albuterol/Ipratropium (Duoneb 3 Mg/0.5 Mg (3 Ml) Ud) 3 ml IH RQ6 [facility] Last Admin: 12/17/17 13:20 Dose: Not Given Cilostazol (Pletal) 50 mg PO BID [facility] Last Admin: 12/17/17 10:44 Dose: Not Given Docusate Sodium (Colace) 100 mg PO BID [facility] Last Admin: 12/17/17 10:44 Dose: Not Given Furosemide (Lasix) 80 mg PO DAILY [facility] Last Admin: 12/17/17 13:36 Dose: 80 mg Gabapentin (Neurontin) 300 mg PO DAILY [facility] Last Admin: 12/17/17 10:44 Dose: Not Given Insulin Human Regular (Novolin R) 0 unit SC [facility] PRN Reason: Protocol Last Admin: 12/17/17 11:51 Dose: Not Given Isosorbide Mononitrate (Imdur) 120 mg PO DAILY [facility] Last Admin: 12/17/17 13:35 Dose: 120 mg Lactulose (Enulose) 20 gm PO DAILY [facility] Last Admin: 12/17/17 10:44 Dose: Not Given Metoprolol Tartrate (Lopressor) 50 mg PO BID [facility] Last Admin: 12/17/17 13:36 Dose: 50 mg Mupirocin (Bactroban Ointment) 0 gm TOP BID [facility] Last Admin: 12/17/17 10:43 Dose: Not Given Prednisone (Prednisone Tab) 5 mg PO DAILY [facility] Last Admin: 12/17/17 10:45 Dose: Not Given Rosuvastatin Calcium (Crestor) 5 mg PO HS [facility] Last Admin: 12/16/17 21:36 Dose: 5 mg - Labs Labs: 12/16/17 06:13 12/16/17 06:13 PT 18.7 SECONDS (9.7-12.2) H 12/16/17 06:13 INR 1.6 12/16/17 06:13 APTT 31 SECONDS (21-34) 12/16/17 06:13 - Constitutional Appears: Well, No Acute Distress - Head Exam Head Exam: ATRAUMATIC, NORMOCEPHALIC - Eye Exam Eye Exam: Normal appearance - ENT Exam ENT Exam: Mucous Membranes Moist, Normal Exam - Neck Exam Neck Exam: Normal Inspection - Respiratory Exam Respiratory Exam: Clear to Ausculation Bilateral, NORMAL BREATHING PATTERN. absent: Prolonged Expiratory Phase, Rales, Rhonchi, Wheezes - Cardiovascular Exam Cardiovascular Exam: REGULAR RHYTHM, +S1, +S2 - GI/Abdominal Exam GI & Abdominal Exam: Soft, Normal Bowel Sounds. absent: Guarding, Rigid, Tenderness, Organomegaly - Extremities Exam Extremities Exam: absent: Joint Swelling, Pedal Edema - Neurological Exam Neurological Exam: Alert, Awake, Oriented x3 - Psychiatric Exam Psychiatric exam: Normal Affect, Normal Mood - Skin Skin Exam: Dry, Intact, Normal Color, Warm Assessment and Plan - Assessment and Plan (Free Text) Assessment: Javier Torres is a 62 year old Male with PMHx of ESRD (TTS), Sarcoidosis , HTN, DM, HLD, CAD with multiple stents, CABG, CHF, PVD, Osteoporosis, Osteoarthritis, Cirrhosis noted on CT Scan (hard of hearing, has hearing aids) presents with nausea, abdominal pain, and increased abdominal girth x 5 days with new onset ascites. Increased abdominal girth, ascites Cirrhosis - unclear etiology ESRD on HD (TTS) HTN / DM Sarcoidosis CAD/CABG Plan: - Low sodium diet as tolerated - S/P paracentesis, PMN < 250 (no SBP). albumin and total protein pending - Abdominal US performed 12/11/17 at [place] - negative for portal or splenic vein thrombosis - Viral hepatitis and autoimmune serologies negative - Continue with lactulose for HE prevention - okay to d/c from GI standpoint -follow-up as an outpt D/W Dr. Hernández <Bailey Hernández - Last Filed: 12/17/17 16:57> Objective - Vital Signs/Intake and Output Vital Signs (last 24 hours): Temp Pulse Resp BP Pulse Ox 97.7 F 79 17 166/85 H 95 12/17/17 12:15 12/17/17 12:15 12/17/17 12:15 12/17/17 13:36 12/17/17 12:15 Intake and Output: 12/17/17 12/17/17 06:59 18:59 Intake Total 350 Balance 350 - Medications Medications: Current Medications Albuterol/Ipratropium (Duoneb 3 Mg/0.5 Mg (3 Ml) Ud) 3 ml IH RQ6 [facility] Last Admin: 12/17/17 13:20 Dose: Not Given Cilostazol (Pletal) 50 mg PO BID [facility] Last Admin: 12/17/17 10:44 Dose: Not Given Docusate Sodium (Colace) 100 mg PO BID [facility] Last Admin: 12/17/17 10:44 Dose: Not Given Furosemide (Lasix) 80 mg PO DAILY [facility] Last Admin: 12/17/17 13:36 Dose: 80 mg Gabapentin (Neurontin) 300 mg PO DAILY [facility] Last Admin: 12/17/17 10:44 Dose: Not Given Insulin Human Regular (Novolin R) 0 unit SC [facility] PRN Reason: Protocol Last Admin: 12/17/17 11:51 Dose: Not Given Isosorbide Mononitrate (Imdur) 120 mg PO DAILY [facility] Last Admin: 12/17/17 13:35 Dose: 120 mg Lactulose (Enulose) 20 gm PO DAILY [facility] Last Admin: 12/17/17 10:44 Dose: Not Given Metoprolol Tartrate (Lopressor) 50 mg PO BID [facility] Last Admin: 12/17/17 13:36 Dose: 50 mg Mupirocin (Bactroban Ointment) 0 gm TOP BID [facility] Last Admin: 12/17/17 10:43 Dose: Not Given Prednisone (Prednisone Tab) 5 mg PO DAILY [facility] Last Admin: 12/17/17 10:45 Dose: Not Given Rosuvastatin Calcium (Crestor) 5 mg PO HS [facility] Last Admin: 12/16/17 21:36 Dose: 5 mg - Labs Labs: 12/16/17 06:13 03/16/18 06:13 PT 18.7 SECONDS (9.7-12.2) H 12/16/17 06:13 INR 1.6 12/16/17 06:13 APTT 31 SECONDS (21-34) 12/16/17 06:13 Attending/Attestation - Attestation I have personally seen and examined this patient.: Yes I have fully participated in the care of the patient.: Yes I have reviewed all pertinent clinical information, including history, physical exam and plan: Yes Notes (Text): 12/17/17 16:36 Patient seen with GI fellow. This is a 62 year old Male with PMHx of ESRD (TTS), Sarcoidosis, HTN, DM, HLD, CAD with multiple stents, CABG, CHF, PVD , Osteoporosis, Osteoarthritis, Cirrhosis noted on CT Scan (hard of hearing, has hearing aids) presents with nausea, abdominal pain, and increased abdominal girth x 5 days with new onset ascites. s/p paracentesis with no SBP. Pending albumin and total protein to calculate SAAG. Low sodium diet as tolerated. Sonogram reviewed- no PVT. Viral hepatitis and autoimmune serologies negative.
[2017-12-17 16:48] VITALS: BP 160/68; PULSE 67; RESP 20; TEMP 98; O2SAT 96
--- NOTE | 2017-12-18 20:56 | CP.PCM.DIS ---
Provider - Provider Date of Admission: 12/14/17 00:00 Attending physician: Hannah Ramos MD Hospital Course - Lab Results Lab Results: Micro Results 12/15/17 Unknown Peritoneal Fluid Gram Stain - Final 12/15/17 Unknown Peritoneal Fluid Anaerobic Culture - Final NO ANAEROBES ISOLATED. 12/15/17 Unknown Peritoneal Fluid Body Fluid Culture - Preliminary NO GROWTH AFTER 2 DAYS Most Recent Lab Values WBC 4.2 K/uL (4.8-10.8) L 12/16/17 06:13 RBC 3.67 Mil/uL (4.40-5.90) L 12/16/17 06:13 Hgb 10.3 g/dL (12.0-18.0) L 12/16/17 06:13 Hct 30.4 % (35.0-51.0) L 12/16/17 06:13 MCV 83.0 fL (80.0-94.0) 12/16/17 06:13 MCH 28.2 pg (27.0-31.0) 12/16/17 06:13 MCHC 33.9 g/dL (33.0-37.0) 12/16/17 06:13 RDW 18.3 % (11.5-14.5) H 12/16/17 06:13 Plt Count 104 K/uL (130-400) L D 12/16/17 06:13 MPV 9.6 fL (7.2-11.7) 12/16/17 06:13 Neut % (Auto) 74.3 % (50.0-75.0) 12/16/17 06:13 Lymph % (Auto) 10.3 % (20.0-40.0) L 12/16/17 06:13 [place] % (Auto) 11.5 % (0.0-10.0) H 12/16/17 06:13 Eos % (Auto) 2.7 % (0.0-4.0) 12/16/17 06:13 Baso % (Auto) 1.2 % (0.0-2.0) 12/16/17 06:13 Neut # (Auto) 3.1 K/uL (1.8-7.0) 12/16/17 06:13 Lymph # (Auto) 0.4 K/uL (1.0-4.3) L 12/16/17 06:13 [place] # (Auto) 0.5 K/uL (0.0-0.8) 12/16/17 06:13 Eos # (Auto) 0.1 K/uL (0.0-0.7) 12/16/17 06:13 Baso # (Auto) 0.0 K/uL (0.0-0.2) 12/16/17 06:13 Neutrophils % (Manual) 83 % (50-75) H 12/14/17 14:38 Lymphocytes % (Manual) 11 % (20-40) L 12/14/17 14:38 Monocytes % (Manual) 6 % (0-10) 12/14/17 14:38 Platelet Estimate Slightly decreased (NORMAL) L 12/14/17 14:38 Polychromasia Slight 12/13/17 20:54 Hypochromasia (manual) Slight 12/14/17 14:38 Poikilocytosis (manual Slight 12/14/17 14:38 Anisocytosis (manual) Slight 12/14/17 14:38 Target Cells Slight 12/14/17 14:38 PT 18.7 SECONDS (9.7-12.2) H 12/16/17 06:13 INR 1.6 12/16/17 06:13 APTT 31 SECONDS (21-34) 12/16/17 06:13 pO2 17 mm/Hg (30-55) L 12/13/17 21:00 VBG pH 7.41 (7.32-7.43) 12/13/17 21:00 VBG pCO2 55 mmHg (40-60) 12/13/17 21:00 VBG HCO3 29.5 mmol/L 12/13/17 21:00 VBG Total CO2 36.6 mmol/L (22-28) H 12/13/17 21:00 VBG O2 Sat (Calc) 29.8 % (40-65) L 12/13/17 21:00 VBG Base Excess 8.4 mmol/L (0.0-2.0) H 12/13/17 21:00 VBG Potassium 4.5 mmol/L (3.6-5.2) 12/13/17 21:00 Sodium 134.0 mmol/l (132-148) 12/13/17 21:00 Chloride 95.0 mmol/L (98-107) L 12/13/17 21:00 Glucose 157 mg/dl (75-110) H 12/13/17 21:00 Lactate 1.9 mmol/L (0.7-2.1) 12/13/17 21:00 Sodium 134 mmol/L (132-148) 12/16/17 06:13 Potassium 4.4 mmol/L (3.6-5.2) 12/16/17 06:13 Chloride 90 mmol/L (98-107) L 12/16/17 06:13 Carbon Dioxide 29 mmol/L (22-30) 12/16/17 06:13 Anion Gap 19 (10-20) 12/16/17 06:13 BUN 20 mg/dL (9-20) 12/16/17 06:13 Creatinine 4.5 mg/dL (0.8-1.5) H 12/16/17 06:13 Est GFR ( Amer) 16 12/16/17 06:13 Est GFR (Non-Af Amer) 13 12/16/17 06:13 POC Glucose (mg/dL) 181 mg/dL (65-110) H 12/17/17 16:47 Random Glucose 187 mg/dL (75-110) H 12/16/17 06:13 Calcium 7.8 mg/dl (8.6-10.4) L 12/16/17 06:13 Total Bilirubin 0.8 mg/dL (0.2-1.3) 12/16/17 06:13 AST 53 U/L (17-59) 12/16/17 06:13 ALT 64 U/L (21-72) 12/16/17 06:13 Alkaline Phosphatase 202 U/L (38-126) H 12/16/17 06:13 Total Protein 7.0 g/dL (6.3-8.3) 12/16/17 06:13 Albumin 3.4 g/dL (3.5-5.0) L 12/16/17 06:13 Globulin 3.5 gm/dL (2.2-3.9) 12/16/17 06:13 Albumin/Globulin Ratio 1.0 (1.0-2.1) 12/16/17 06:13 Ceruloplasmin 34 mg/dL (18-36) 12/14/17 10:50 Lipase 87 U/L (23-300) 12/14/17 10:50 Alpha Fetoprotein 5.4 ng/mL (0.0-7.5) 12/14/17 10:50 Venous Blood Potassium 4.5 mmol/L (3.6-5.2) 12/13/17 21:00 Urine Color Jackie (YELLOW) 12/14/17 14:38 Urine Clarity Hazy (Clear) 12/14/17 14:38 Urine pH 5.0 (5.0-8.0) 12/14/17 14:38 Ur Specific [place] 1.023 (1.003-1.030) 12/14/17 14:38 Urine Protein 3+ mg/dL (NEGATIVE) H 12/14/17 14:38 Urine Glucose (UA) Normal mg/dL (Normal) 12/14/17 14:38 Urine Ketones Negative mg/dL (NEGATIVE) 12/14/17 14:38 Urine Blood 1+ (NEGATIVE) H 12/14/17 14:38 Urine Nitrate Negative (NEGATIVE) 12/14/17 14:38 Urine Bilirubin Negative (NEGATIVE) 12/14/17 14:38 Urine Urobilinogen 2.0 mg/dL (0.2-1.0) 12/14/17 14:38 Ur Leukocyte Esterase 2+ [place]/uL (Negative) H 12/14/17 14:38 Urine WBC (Auto) 69 /hpf (0-5) H 12/14/17 14:38 Urine RBC (Auto) 21 /hpf (0-3) H 12/14/17 14:38 Ur Squamous Epith Cells 1 /hpf (0-5) 12/14/17 14:38 Amorphous Sediment Rare /ul (<OCC) H 12/14/17 14:38 Urine Bacteria Few (<OCC) H 12/14/17 14:38 Hyaline Casts 0-2 /lpf (0-2) 12/14/17 14:38 Fluid Source Peritoneal/ascites 12/16/17 12:13 Fluid Appearance Bloody (CLEAR) 12/16/17 12:13 Fluid WBC 421.0 /mm3 (0.0-300.0) H 12/16/17 12:13 Fluid RBC 71325.0 /mm3 (0.0-0.0) H 12/16/17 12:13 Fluid Tot Cell Count 100 (0-0) H 12/16/17 12:13 Fluid Neutrophils 24.0 % (0-0) H 12/16/17 12:13 Fluid Lymphocytes 72.0 % (0-0) H 12/16/17 12:13 Fld Monocyte/Macrophag 2 % (0-0) H 12/16/17 12:13 Fluid Comment 12/16/17 12:13 IgG 2151.0 mg/dL (700.0-1600.0) H 12/14/17 10:50 SHIVAM 6 Profile Negative (NEGATIVE) 12/14/17 10:50 Anti-Mitochondrial Ab Negative (Negative) 12/14/17 10:50 Anti-Smooth Muscle Ab Negative (Negative) 12/14/17 10:50 Liver/Kid Microsomes Ab <=20.0 U (<=20.0) 12/14/17 10:50 Hepatitis A IgM Ab Negative (NEGATIVE) 12/14/17 10:50 Hep Bs Antigen Negative (NEGATIVE) 12/14/17 10:50 Hep B Core IgM Ab Negative (NEGATIVE) 12/14/17 10:50 Hepatitis Be Antigen Nonreactive (Nonreactive) 12/14/17 10:50 Hepatitis C Antibody Negative (NEGATIVE) 12/14/17 10:50 Discharge Exam - Head Exam Head Exam: ATRAUMATIC, NORMOCEPHALIC Discharge Plan - Follow Up Plan Condition: GUARDED Disposition: HOME/ ROUTINE Instructions: Acute Abdominal Pain (DC), Acute Abdominal Pain (GEN)
== END 2017-12-17 19:35 | disposition home or self-care (01) | DRG 432 ==
LOC: C.ER 20:06 → C.3T 12-14
PROVIDERS: ADMIT Internal Medicine; ATTEND Internal Medicine
PROC: 5A1D70Z Performance of Urinary Filtration, Intermittent, Less than 6 Hours Per Day (ICD-10-PCS; 2017-12-15)
PROC: 0W9G3ZZ Drainage of Peritoneal Cavity, Percutaneous Approach (ICD-10-PCS; principal; 2017-12-16)
PROC: 5A1D70Z Performance of Urinary Filtration, Intermittent, Less than 6 Hours Per Day (ICD-10-PCS; 2017-12-17)
DX: K74.60 Unspecified cirrhosis of liver (principal); N18.6 End stage renal disease; I13.2 Hypertensive heart and chronic kidney disease with heart failure and with stage 5 chronic kidney disease, or end stage renal disease; E11.51 Type 2 diabetes mellitus with diabetic peripheral angiopathy without gangrene; E11.21 Type 2 diabetes mellitus with diabetic nephropathy; R18.8 Other ascites; E11.22 Type 2 diabetes mellitus with diabetic chronic kidney disease; I50.9 Heart failure, unspecified; I25.10 Atherosclerotic heart disease of native coronary artery without angina pectoris; H40.9 Unspecified glaucoma; E78.5 Hyperlipidemia, unspecified; H91.90 Unspecified hearing loss, unspecified ear; J45.909 Unspecified asthma, uncomplicated; D86.9 Sarcoidosis, unspecified; Z95.5 Presence of coronary angioplasty implant and graft; Z99.2 Dependence on renal dialysis; Z99.81 Dependence on supplemental oxygen

== ENCOUNTER 2018-06-28 06:14 | Day surgery (SDC) | payer MEDICARE, MEDICAID ==
[2018-05-20 14:16] VITALS: BMI 23.8
[2018-06-28] MEDS ORDERED: Etomidate 20 mg/10ml Inj IV ONE (08:36)
[2018-06-28] MEDS ORDERED: Midazolam 2 MG/2 ML VIAL ONE (08:36)
[2018-06-28] MEDS ORDERED: Propofol 10 mg/ml Inj (20 ML) ONE (08:36)
[2018-06-28] MEDS ORDERED: Lidocaine Hydrochloride 5 ML INJ ONE (08:36)
--- NOTE | 2018-06-28 08:40 | CP.SDSHP ---
Same Day Surgery H & P - History Proposed Procedure: egd. colonoscopy - Previous Medical/Surgical History Cardiac: Hypertension, ASHD/CAD, Hx of CHF Pulmonary: Asthma Endocrine/Metabolic: Diabetes, Renal Disease Misc: Other (Cirrhosis, Ascites, Renal failure on HD) Previous Surgical History: CABG. AV fistula. GB - Allergies Allergies: Allergies No Known Allergies Allergy (Verified 12/14/17 00:48) - Physical Exam Vital Signs: Vital Signs 06/28/18 06/28/18 06:50 08:33 Temperature 97 F L 97 F L Pulse Rate 73 73 Respiratory 19 19 Rate Blood Pressure 105/64 105/64 O2 Sat by Pulse 98 98 Oximetry Mental Status: Alert & Oriented x3 Neuro: WNL Heart: WNL Lungs: WNL GI: WNL - Impression Impression: cirrhosis of liver, r/o varices. anemia. constipation/change in bowels Pt. Evaluated Today:Candidate for Anesthesia & Procedure: Yes - Date & Time Date: 06/28/18 Time: 08:39 Short Stay Discharge - Short Stay Discharge Admitting Diagnosis/Reason for Visit: ASCITES / CIRRHOSIS / CONSTIPATION Disposition: HOME/ ROUTINE
[2018-06-28 08:41] LABS: CALCIUM 5.7 mg/dl (8.6-10.4)
[2018-06-28] MEDS ORDERED: Pantoprazole 40 mg EC Tab PO STA (08:55)
[2018-06-28 10:00] VITALS: RESP 16
[2018-06-28 10:24] VITALS: BP 134/63; PULSE 69; TEMP 98.4; O2SAT 99
== END 2018-06-28 11:51 | disposition home or self-care (01) ==
LOC: C.ENDO 06:14
PROVIDERS: ATTEND Internal Medicine Gastroenterology
DX: D50.9 Iron deficiency anemia, unspecified (principal); R18.8 Other ascites; K74.60 Unspecified cirrhosis of liver; K59.00 Constipation, unspecified; K64.1 Second degree hemorrhoids; K57.30 Diverticulosis of large intestine without perforation or abscess without bleeding; K21.9 Gastro-esophageal reflux disease without esophagitis; K29.60 Other gastritis without bleeding; I10 Essential (primary) hypertension; I25.10 Atherosclerotic heart disease of native coronary artery without angina pectoris; E11.9 Type 2 diabetes mellitus without complications
CPT/HCPCS: 36415; 43239; 45378; 80048; 82948; 88305; J2250; J2704; J7040